=== PATIENT | male | born 1950 | race Two or more races ===

== ENCOUNTER 2017-03-09 12:24 | Emergency (ER) | payer MEDICARE, OTHER ==
[~2017-03-09] VITALS: Ht 165.1 cm; Wt 72.6 kg
[2017-03-09 13:31] LABS: Albumin 3.8 g/dL (3.4-5.0); Alkaline Phosphatase 121 U/L (45-117); Anion Gap 8 (5-15); Aspartate Aminotransferase 16 U/L (15-37); BUN/Creatinine Ratio 11.1; Bilirubin, Total 0.4 mg/dL (0.2-1.0); Blood Urea Nitrogen 10 mg/dL (7-18); Calcium 8.5 mg/dL (8.5-10.1); Carbon Dioxide 25 mmol/L (21-32); Chloride 105 mmol/L (98-107); GFR African American 109 mL/min; GFR Non-African American 90 mL/min; Glucose 112 mg/dL (74-106); Sodium 138 mmol/L (136-145); Total Protein 7.3 g/dL (6.4-8.2)
[2017-03-09 13:39] LABS: Basophils # (auto) 0 uL; Basophils % (auto) 0.6 % (0.0-2.0); Eosinophils # (auto) 0 uL; Eosinophils % (auto) 0.5 % (0.0-7.0); Hematocrit 42.2 % (41.0-53.0); Hemoglobin 14.7 g/dL (13.5-17.5); Lymphocytes # (auto) 1.5 uL; Lymphocytes % (auto) 24.4 % (10.0-50.0); Mean Corpuscular Hemoglobin 32.6 pg (28.0-32.0); Mean Corpuscular Hgb Conc. 34.9 g/dL (32.0-36.0); Mean Corpuscular Volume 93.5 fL (80.0-100.0); Monocytes # (auto) 0.4 uL; Monocytes % (auto) 6.5 % (0.0-12.0); Neutrophils # (auto) 4.2 uL; Platelet Count (auto) 304 10^3/uL (140-450); White Blood Cell 6.2 10^3/uL (4.4-10.8)
[2017-03-09] MEDS ORDERED: cloNIDine HCL 0.1 MG TAB PO ONE (15:45)
[2017-03-09 17:31] VITALS: BP 121/79
== END 2017-03-09 19:24 | disposition home or self-care (01) ==
LOC: EDBD 12:24 → ER 12:32
DX: I10 Essential (primary) hypertension (principal); R07.9 Chest pain, unspecified
CPT/HCPCS: 36415; 71010; 80053; 84484; 85025; 93005; 94761

== ENCOUNTER → 2017-10-31 | Day surgery (SDC) | payer MEDICARE, MEDICAID ==
[2017-10-27 10:21] LABS: Basophils # (auto) 0.1 uL; Basophils % (auto) 1.1 % (0.0-2.0); Eosinophils # (auto) 0.1 uL; Eosinophils % (auto) 1.8 % (0.0-7.0); Hematocrit 44.1 % (41.0-53.0); Hemoglobin 15.2 g/dL (13.5-17.5); Lymphocytes % (auto) 34.4 % (10.0-50.0); Mean Corpuscular Hemoglobin 32.5 pg (28.0-32.0); Mean Corpuscular Hgb Conc. 34.5 g/dL (32.0-36.0); Mean Corpuscular Volume 94.1 fL (80.0-100.0); Monocytes # (auto) 0.4 uL; Monocytes % (auto) 7.3 % (0.0-12.0); Neutrophils # (auto) 3.1 uL; Neutrophils % (auto) 55.4 % (37.0-80.0); Nucleated Red Blood Cells % 0.1 %; Platelet Count (auto) 277 10^3/uL (140-450); Red Blood Cells 4.68 10^6/uL (4.5-5.90); White Blood Cell 5.7 10^3/uL (4.4-10.8)
[2017-10-27 10:27] LABS: Urine Bacteria NONE SEEN /hpf (None Seen); Urine Blood Negative /uL (Negative); Urine Specific Gravity 1.008 (1.001-1.035); Urine WBC 1 /hpf (0 - 3)
[2017-10-27 10:43] LABS: Albumin 4.2 g/dL (3.4-5.0); BUN/Creatinine Ratio 13.7; Bilirubin, Total 0.5 mg/dL (0.2-1.0); Calcium 8.9 mg/dL (8.5-10.1); Potassium 4.2 mmol/L (3.5-5.1); Total Protein 7.9 g/dL (6.4-8.2)
[2017-10-27 11:03] LABS: INR 0.91 (0.9-1.15); Partial Thromboplastin Time 24.6 sec (22.64-33.71); Prothrombin Time 9.9 sec (9.37-12.3)
[~2017-10-31] VITALS: Ht 154.9 cm; Wt 68.5 kg
[~2017-10-31] MED LIST: ATOR20TA50 PO; DILT120T3 PO; ceFAZolin 1GM/50ML 50 ML IV ONE
[2017-10-31 06:30] VITALS: BP 135/82
== END | disposition home or self-care (01) ==
LOC: SUR 06:08
PROVIDERS: ATTEND Orthopaedic Surgery
DX: M24.662 Ankylosis, left knee (principal); Z53.8 Procedure and treatment not carried out for other reasons; M24.562 Contracture, left knee; E66.9 Obesity, unspecified; Z68.28 Body mass index [BMI] 28.0-28.9, adult; D69.6 Thrombocytopenia, unspecified
CPT/HCPCS: 36415; 80053; 81001; 85025; 85610; 85730; 86850; 86900; 86901; 93306; J0690

== ENCOUNTER 2020-07-15 12:17 | Emergency (ER) | payer OTHER, MEDICAID ==
[~2020-07-15] VITALS: Ht 165.1 cm; Wt 71.7 kg
[~2020-07-15 12:17] MED LIST changes: -ceFAZolin 1GM/50ML 50 ML IV ONE
[2020-07-15] MEDS ORDERED: cloNIDine HCL 0.1 MG TAB PO ONE (12:30)
[2020-07-15 12:54] LABS: Basophils # (auto) 0.1 10 ^3/uL (0-0.2); Basophils % (auto) 1.1 % (0.0-2.0); Eosinophils # (auto) 0.1 10 ^3/uL (0-0.8); Hematocrit 38.9 % (41.0-53.0); Hemoglobin 13.7 g/dL (13.5-17.5); Lymphocytes # (auto) 1.2 10 ^3/uL (0.4-5.4); Lymphocytes % (auto) 22.8 % (10.0-50.0); Mean Corpuscular Hemoglobin 33.8 pg (28.0-32.0); Mean Corpuscular Hgb Conc. 35.2 g/dL (32.0-36.0); Mean Corpuscular Volume 96.2 fL (80.0-100.0); Monocytes # (auto) 0.5 10 ^3/uL (0-1.3); Monocytes % (auto) 8.9 % (0.0-12.0); Neutrophils # (auto) 3.6 10 ^3/uL (1.6-8.6); Neutrophils % (auto) 66.2 % (37.0-80.0); Platelet Count (auto) 239 10^3/uL (140-450); Red Blood Cells 4.05 10^6/uL (4.5-5.90); White Blood Cell 5.4 10^3/uL (4.4-10.8)
[2020-07-15 12:55] VITALS: BP 248/138
[2020-07-15 13:15] LABS: Calcium 8.7 mg/dL (8.5-10.1); Potassium 3.9 mmol/L (3.5-5.1)
[2020-07-15 13:17] LABS: BUN/Creatinine Ratio 9.7; Bilirubin, Total 0.5 mg/dL (0.2-1.0); Total Protein 7.7 g/dL (6.4-8.2)
== END 2020-07-15 13:58 | disposition home or self-care (01) ==
LOC: ER 12:17
DX: I16.0 Hypertensive urgency (principal); Z79.899 Other long term (current) drug therapy
CPT/HCPCS: 36415; 80053; 85025; 93005

== ENCOUNTER 2021-12-03 11:03 | Inpatient (IN) | payer OTHER, MEDICAID ==
[~2021-12-03] VITALS: Ht 165.1 cm; Wt 66.7 kg
[2021-12-03] MEDS ORDERED: SODIUM BICARBONATE 8.4% INJ 50ML SYRINGE IV ONE (12:00)
[2021-12-03] MEDS ORDERED: CALCIUM CHL 100MG/ML 1,000 MG in D5W 5% 100 ML IV ONE (12:00)
[2021-12-03] MEDS ORDERED: DEXTROSE (50%) 50ML SYRG IV ONE (12:00)
[2021-12-03] MEDS ORDERED: InsuLIN REG 1unit/0.01ml Soln (100units/ml) IV ONE (12:00)
[2021-12-03] MEDS ORDERED: ALBUTEROL SULF 2.5 MG/0.5ML(0.5%) NEB SOLN NEB ONE (12:00)
[2021-12-03] MEDS ORDERED: SODIUM ZIRCONIUM CYCL 10 GM PAK PO ONE (12:00)
[2021-12-03 12:16] LABS: Basophils # (auto) 0 10 ^3/uL (0-0.2); Basophils % (auto) 0.7 % (0.0-2.0); Eosinophils # (auto) 0.1 10 ^3/uL (0-0.8); Eosinophils % (auto) 2.5 % (0.0-7.0); Hemoglobin 9.8 g/dL (13.5-17.5); Lymphocytes # (auto) 1.1 10 ^3/uL (0.4-5.4); Lymphocytes % (auto) 24.7 % (10.0-50.0); Mean Corpuscular Hgb Conc. 33.8 g/dL (32.0-36.0); Mean Corpuscular Volume 97.4 fL (80.0-100.0); Monocytes # (auto) 0.4 10 ^3/uL (0-1.3); Monocytes % (auto) 8.5 % (0.0-12.0); Neutrophils # (auto) 2.9 10 ^3/uL (1.6-8.6); Neutrophils % (auto) 63.6 % (37.0-80.0); Nucleated Red Blood Cells % 0.1 %; Red Blood Cells 2.97 10^6/uL (4.5-5.90); Red Cell Distribution Width 13.6 % (11.8-14.3); White Blood Cell 4.5 10^3/uL (4.4-10.8)
[2021-12-03 12:22] LABS: INR 0.99 (0.9-1.15); Partial Thromboplastin Time 24.6 sec (23.6-33.0)
[2021-12-03 12:26] LABS: Albumin 3.8 g/dL (3.4-5.0); BUN/Creatinine Ratio 14.5; Calcium 8.6 mg/dL (8.5-10.1)
[2021-12-03] MEDS ORDERED: ASPirin 81 mg TAB PO ONE (12:30)
[2021-12-03] MEDS ORDERED: ALBUTEROL SULF 2.5 MG/0.5ML(0.5%) NEB SOLN ONE (12:32)
[2021-12-03 12:38] LABS: Bilirubin, Total 0.5 mg/dL (0.2-1.0); Total Protein 7.1 g/dL (6.4-8.2)
[2021-12-03 12:52] LABS: Potassium 5.9 mmol/L (3.5-5.1)
[2021-12-03] MEDS ORDERED: SODIUM BICARBONATE 8.4 % INJ 50ML VIAL IV ONE (13:52)
[2021-12-03 15:14] LABS: Urine Bacteria NONE SEEN /hpf (None Seen); Urine Blood 1+ /uL (Negative); Urine Specific Gravity 1.005 (1.001-1.035); Urine WBC 1 /hpf (0 - 3)
[2021-12-03] MEDS ORDERED: ACETAMINOPHEN 500 MG TAB PO PRN (16:45)
[2021-12-03] MEDS ORDERED: MORPHINE SULFATE INJECTION 2 MG/ML SYRG IV PRN (16:45)
[2021-12-03] MEDS ORDERED: hydrALAZINE HCL 20 MG/ML VL IV PRN (16:45)
[2021-12-03] MEDS ORDERED: NITROGLYCERIN 0.4 MG SL TAB SL PRN (16:45)
[2021-12-03] MEDS: SODIUM CHLORIDE 0.9% 1,000 ML IV SCH (17:08)
[2021-12-03 18:39] LABS: % Iron Saturation 32.5 % (20-55)
[2021-12-03 21:20] VITALS: BP 142/73
[2021-12-03 22:00] VITALS: BP 142/73
[2021-12-03] MEDS ORDERED: SODIUM ZIRCONIUM CYCL 10 GM PAK PO SCH (22:00)
[2021-12-04] MEDS ORDERED: TAMS1CAP25 PO (00:14)
[2021-12-04] MEDS ORDERED: HYDR25TA5 PO (00:14)
[2021-12-04] MEDS ORDERED: SPIR50TA5 PO (00:14)
[2021-12-04] MEDS ORDERED: CARV12.544 PO (00:14)
[2021-12-04 05:00] VITALS: BP 109/63
[2021-12-04 06:01] LABS: Potassium 4.9 mmol/L (3.5-5.1)
[2021-12-04 06:03] LABS: BUN/Creatinine Ratio 16.2
[2021-12-04 06:13] LABS: Basophils # (auto) 0 10 ^3/uL (0-0.2); Basophils % (auto) 0.6 % (0.0-2.0); Eosinophils # (auto) 0.2 10 ^3/uL (0-0.8); Eosinophils % (auto) 2.2 % (0.0-7.0); Hematocrit 33.2 % (41.0-53.0); Hemoglobin 11.5 g/dL (13.5-17.5); Lymphocytes # (auto) 1.5 10 ^3/uL (0.4-5.4); Lymphocytes % (auto) 20.5 % (10.0-50.0); Mean Corpuscular Hgb Conc. 34.7 g/dL (32.0-36.0); Mean Corpuscular Volume 95.2 fL (80.0-100.0); Monocytes # (auto) 0.8 10 ^3/uL (0-1.3); Monocytes % (auto) 10.5 % (0.0-12.0); Neutrophils % (auto) 66.2 % (37.0-80.0); Nucleated Red Blood Cells % 0.1 %; Red Blood Cells 3.48 10^6/uL (4.5-5.90); Red Cell Distribution Width 13.4 % (11.8-14.3); White Blood Cell 7.5 10^3/uL (4.4-10.8)
[2021-12-04 08:00] VITALS: BP 125/71
[2021-12-04 08:49] VITALS: BP 125/71
[2021-12-04] MEDS: SODIUM CHLORIDE 0.9% 1,000 ML IV SCH ×2 (09:25→18:02)
[2021-12-04 12:58] VITALS: BP 153/88
[2021-12-04 17:00] VITALS: BP 146/72
[2021-12-04 22:00] VITALS: BP 131/74
[2021-12-05 05:00] VITALS: BP 123/66
[2021-12-05 06:15] LABS: Calcium 8.9 mg/dL (8.5-10.1); Potassium 4.8 mmol/L (3.5-5.1)
[2021-12-05 06:19] LABS: BUN/Creatinine Ratio 17.1
[2021-12-05 08:00] VITALS: BP 125/80
[2021-12-05 09:00] VITALS: BP 125/80
[2021-12-05 13:00] VITALS: BP 157/98
[2021-12-05 17:00] VITALS: BP 140/75
[2021-12-05] MEDS: SODIUM CHLORIDE 0.9% 1,000 ML IV SCH ×2 (17:00→17:50)
[2021-12-05 22:00] VITALS: BP 137/83
[2021-12-06 05:00] VITALS: BP 137/74
[2021-12-06 09:00] VITALS: BP 147/88
[2021-12-06 10:54] VITALS: BP 147/88
== END 2021-12-06 12:38 | disposition home or self-care (01) | DRG 641 ==
LOC: ER 11:03 → TELE 16:27 → TELE-WESTW 21:00
PROVIDERS: ADMIT Internal Medicine; ATTEND Internal Medicine
DX: E87.5 Hyperkalemia (principal); N17.9 Acute kidney failure, unspecified; I12.9 Hypertensive chronic kidney disease with stage 1 through stage 4 chronic kidney disease, or unspecified chronic kidney disease; N18.32 Chronic kidney disease, stage 3b; N40.0 Benign prostatic hyperplasia without lower urinary tract symptoms; E86.9 Volume depletion, unspecified; Z20.822 Contact with and (suspected) exposure to COVID-19
CPT/HCPCS: 36415; 71045; 76775; 80048; 80053; 81001; 83540; 83550; 84132; 84154; 85025; 85610; 85730; 87426; 93005; 94640; 96365; 96375; 99291; G0378; J1815; J7060

== ENCOUNTER 2022-04-11 16:00 | Emergency (ER) | payer OTHER, MEDICAID ==
[~2022-04-11] VITALS: Ht 165.1 cm; Wt 68.0 kg
[~2022-04-11 16:00] MED LIST changes: +CARV12.544 PO; +HYDR25TA5 PO; +TAMS1CAP25 PO
[2022-04-11 16:15] VITALS: BP 148/83
[2022-04-11 17:16] LABS: Urine Bacteria NONE SEEN /hpf (None Seen); Urine Blood 3+ /uL (Negative); Urine Specific Gravity 1.011 (1.001-1.035); Urine WBC 599 /hpf (0 - 3); Urine WBC Clumps PRESENT /hpf (None Seen)
[2022-04-13] MEDS ORDERED: NITR-87 PO (20:54)
== END 2022-04-11 17:28 | disposition home or self-care (01) ==
LOC: ER 16:00
DX: T83.028A Displacement of other urinary catheter, initial encounter (principal); I12.9 Hypertensive chronic kidney disease with stage 1 through stage 4 chronic kidney disease, or unspecified chronic kidney disease; N18.9 Chronic kidney disease, unspecified; Z79.899 Other long term (current) drug therapy
CPT/HCPCS: 81001; 87086; 87088; 87186

== ENCOUNTER 2024-05-03 08:26 | Emergency (ER) | payer MEDICAID, OTHER ==
[~2024-05-03] VITALS: Ht 165.1 cm; Wt 66.8 kg
[~2024-05-03 08:26] MED LIST changes: +NITR-87 PO
[2024-05-03 09:08] VITALS: BP 160/76; PULSE 76; RESP 18; TEMP 98; O2SAT 99
[2024-05-03] MEDS ORDERED: BACDST PO (09:44)
== END 2024-05-03 09:58 | disposition home or self-care (01) ==
LOC: ER 08:26
DX: N39.0 Urinary tract infection, site not specified (principal); I12.9 Hypertensive chronic kidney disease with stage 1 through stage 4 chronic kidney disease, or unspecified chronic kidney disease; N18.9 Chronic kidney disease, unspecified; Z46.6 Encounter for fitting and adjustment of urinary device
CPT/HCPCS: 51702; 81002

== ENCOUNTER 2025-02-10 13:49 | Inpatient (IN) | payer OTHER, MEDICAID ==
[~2025-02-10] VITALS: Ht 165.1 cm; Wt 70.3 kg
[2025-02-10] VITALS (9 sets, daily range): BP systolic 98–118; BP diastolic 55–78; PULSE 66–78; RESP 12–20; TEMP 97.4–98.6; O2SAT 94–100
[~2025-02-10 13:49] MED LIST changes: +BACDST PO
[2025-02-10 14:19] LABS: Basophils # (auto) 0 10 ^3/uL (0-0.2); Basophils % (auto) 0.2 % (0.0-2.0); Eosinophils # (auto) 0 10 ^3/uL (0-0.8); Hematocrit 41.2 % (41.0-53.0); Hemoglobin 14.8 g/dL (13.5-17.5); Lymphocytes # (auto) 1.1 10 ^3/uL (0.4-5.4); Lymphocytes % (auto) 5.1 % (10.0-50.0); Mean Corpuscular Hemoglobin 32.8 pg (28.0-32.0); Mean Corpuscular Hgb Conc. 35.9 g/dL (32.0-36.0); Mean Corpuscular Volume 91.4 fL (80.0-100.0); Monocytes # (auto) 1.6 10 ^3/uL (0-1.3); Monocytes % (auto) 7.4 % (0.0-12.0); Neutrophils # (auto) 18.6 10 ^3/uL (1.6-8.6); Neutrophils % (auto) 87.3 % (37.0-80.0); Platelet Count (auto) 228 10^3/uL (140-450); Red Blood Cells 4.51 10^6/uL (4.5-5.90); Red Cell Distribution Width 13.2 % (11.8-14.3); White Blood Cell 21.3 10^3/uL (4.4-10.8)
[2025-02-10 14:27] LABS: Potassium 4.3 mmol/L (3.5-5.1)
[2025-02-10 14:28] LABS: Anion Gap 12 (5-15); Carbon Dioxide 24 mmol/L (20-31)
[2025-02-10] MEDS: HEPARIN 1,000 UNITS/ml 1ML VIAL IV ONE (14:30)
[2025-02-10] MEDS: MORPHINE SULFATE 4 MG/ML SYR/VIAL IV ONE (14:30)
[2025-02-10] MEDS: ONDANSETRON HCL 4 MG/2 ML VIAL IV ONE (14:30)
[2025-02-10] MEDS: ASPirin 81 mg TAB PO ONE (14:30)
[2025-02-10] MEDS: ANGIOMAX 250 MG VIAL IV ONE (14:32)
[2025-02-10] MEDS: fentaNYL CITRATE 100 MCG/2 ML VL ONE (14:32)
--- NOTE | 2025-02-10 14:32 | ED.PDOC ---
HPI Comments 74y M who presents to the ED for chief complaint of chest pain. Pt states he has been having chest pain for the past 2 days. Pt states the pain is located by the L side of his chest, radiating to the L arm and shoulder, rating the pain 10/10, constant, with no noted exacerbating or relieving factors. Pt has associated dizziness, palpitations and shortness of breath but otherwise denies diaphoresis, nausea, vomiting, fever, cough, chills, or headache. Pt has history of HTN. Pt otherwise has BP of 123/95 and temp of 97.0 F but otherwise has stable vitals in the ED. Pt denies any other symptoms at this time. Chief Complaint: chest pain Time Seen by MD: 14:28 Primary Care Provider: JULIA Be Notes: Medications, Allergies Allergies: Coded Allergies: NO KNOWN ALLERGIES (Unverified , 12/03/21) Home Meds Active Scripts Sulfamethoxazole W/Trimethopri (Bactrim Ds Tablet) 1 Tab Tb, 1 TAB PO BID for 10 Days, #20 TAB Prov:COMPA BECERRA 05/03/24 Nitrofurantoin Monohydrate Mac (Macrobid) 100 Mg Cap, 100 MG PO BID for 7 Days, #14 CAP Prov:AIDA BLANKENSHIP MD 04/13/22 Reported Medications Carvedilol (Carvedilol) 12.5 Mg Tab, 12.5 MG PO Q12HR for 30 Days, MG 12/04/21 Tamsulosin HCl (Tamsulosin Hydrochloride) 0.4 Mg Cap, 0.4 MG PO, CAP 12/04/21 Hctz (Hydrochlorothiazide) 25 Mg Tab, 25 MG PO, TAB 12/04/21 Diltiazem Hcl (Diltiazem Hcl) 120 Mg Tab, 120 MG PO DAILY, TAB 10/27/17 Atorvastatin Calcium (ATORVASTATIN CALCIUM) 20 Mg Tab, 1 TAB PO DAILY, #30 TAB 5 Refills 10/27/17 Information Source: Patient Mode of Arrival: Ambulatory Brought in by: self Severity: Moderate Timing: Days Duration: Since onset Prehospital treatment: None Location: Chest (L) Radiation: Shoulder (L), Arm (L) Quality: Sharp, Pressure Onset: At Rest Cardiac Risk Factors: HTN PE Risk Factors: None History of: None Modifying Factors: Nothing Associated Signs and Symptoms: SOB, Palpitations Past Medical History PAST MEDICAL HISTORY: CKF, HTN Past Medical History (Other): BPH Surgical History: Hernia Repair Family History Family History: Reviewed,noncontributory to illness Social History Smoker: Non-Smoker Alcohol: Denies ETOH Use Drugs: Denies Drug Use Lives In: Home Constitutional: denies: chills, diaphoresis, fatigue, fever, malaise, sweats, weakness, others EENTM: denies: blurred vision, double vision, ear bleeding, ear discharge, ear drainage, ear pain, ear ringing, eye pain, eye redness, hearing loss, mouth pain, mouth swelling, nasal discharge, nose bleeding, nose congestion, nose pain, photophobia, tearing, throat pain, throat swelling, voice changes, others Respiratory: reports: shortness of breath; denies: cough, hemoptysis, orthopnea, SOB at rest, SOB with excertion, stridor, wheezing, others Cardiovascular: reports: chest pain, palpitations; denies: dizzy spells, diaphoresis, Dyspnea on exertion, edema, irregular heart beat, left arm pain, lightheadedness, PND, syncope, others Gastrointestinal: denies: abdomen distended, abdominal pain, blood streaked bowels, constipated, diarrhea, dysphagia, difficulty swallowing, hematemesis, melena, nausea, poor appetite, poor fluid intake, rectal bleeding, rectal pain, vomiting, others Genitourinary: denies: burning, dysuria, flank pain, frequency, hematuria, incontinence, penile discharge, penile sore, pain, testicle pain, testicle swelling, urgency, others Neurological: reports: dizziness; denies: fainting, headache, left sided numbne ss, left sided weakness, numbness, paresthesia, pre-existing deficit, right sided numbness, right sided weakness, seizure, speech problems, tingling, tremors, weakness, others Musculoskeletal: denies: back pain, gout, joint pain, joint swelling, muscle pain, muscle stiffness, neck pain, others Integumetry: denies: bruises, change in color, change in hair/nails, dryness, laceration, lesions, lumps, rash, wounds, others Allergic/Immunocompromised: denies: Difficulty Healing, Frequent Infections, Hives, Itching, others Hematologic/Lymphatic: denies: anemia, blood clots, easy bleeding, easy bruising, swollen glands, others Endocrine: denies: excessive hunger, excessive sweating, excessive thirst, excessive urination, flushing, intolerance to cold, intolerance to heat, unexplained weight gain, unexplained weight loss, others Psychiatric: denies: anxiety, bipolar disorder, depression, hopeless, panic disorder, schizophrenia, sleepless, suicidal, others All Other Systems: Reviewed and Negative Physical Exam General Appearance: Moderate Distress HEENT: Normal ENT Inspection, Pharynx Normal, TMs Normal Neck: Full Range of Motion, Non-Tender, Normal, Normal Inspection Respiratory: Chest Non-Tender, Lungs Clear, No Accessory Muscle Use, No Respiratory Distress, Normal Breath Sounds Cardiovascular: No Edema, No JVD, No Murmur, No Gallop, Normal Peripheral Pulses, Regular Rate/Rhythm Breast Exam: Deferred Gastrointestinal: No Organomegaly, Non Tender, No Pulsatile Mass, Normal Bowel Sounds, Soft Genitalia: Deferred Pelvic: Deferred Rectal: Deferred Extremities: No calf tenderness, Normal capillary refill, No pedal edema Musculoskeletal : Apperance: Normal Neurologic: Alert, 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 Was a procedure done?: No CP Differential Dx Differential Diagnosis: A-fib, A-Flutter, Angina, Anxiety / Panic Attack, Atrial Dysrhythmia, Heart Failure, PR, Pulmonary Embolus, PVC's, Renal Failure, Sinus Tachycardia Differential Diagnosis: HTN Essential, HTN Accelerated, Medical NonCompliance X-Ray, Labs, Meds, VS Vital Signs Date Time Temp Pulse Resp B/P (MAP) Pulse Ox O2 Delivery O2 Flow Rate FiO2 02/10/25 14:43 96 Nasal Cannula* 2 28 02/10/25 14:32 80 02/10/25 14:30 78 15 119/78 02/10/25 14:25 78 15 95 Room Air* 0 21 02/10/25 14:25 97.5 78 15 119/78 (92) 94 97.5 02/10/25 13:49 97.0 87 18 123/95 (104) 97 97.0 Lab Test 02/10/25 14:07 02/10/25 13:58 Range/Units White Blood Count 21.3 H 4.4-10.8 10^3/uL Red Blood Count 4.51 4.5-5.90 10^6/uL Hemoglobin 14.8 13.5-17.5 g/dL Hematocrit 41.2 41.0-53.0 % Mean Corpuscular Volume 91.4 80.0-100.0 fL Mean Corpuscular Hemoglobin 32.8 H 28.0-32.0 pg Mean Corpuscular Hemoglobin Concent 35.9 32.0-36.0 g/dL Red Cell Distribution Width 13.2 11.8-14.3 % Platelet Count 228 140-450 10^3/uL Mean Platelet Volume 7.9 6.9-10.8 fL Neutrophils (%) (Auto) 87.3 H 37.0-80.0 % Lymphocytes (%) (Auto) 5.1 L 10.0-50.0 % Monocytes (%) (Auto) 7.4 0.0-12.0 % Eosinophils (%) (Auto) 0.0 0.0-7.0 % Basophils (%) (Auto) 0.2 0.0-2.0 % Neutrophils # (Auto) 18.6 H 1.6-8.6 10 ^3/uL Lymphocytes # (Auto) 1.1 0.4-5.4 10 ^3/uL Monocytes # (Auto) 1.6 H 0-1.3 10 ^3/uL Eosinophils # (Auto) 0 0-0.8 10 ^3/uL Basophils # (Auto) 0 0-0.2 10 ^3/uL Nucleated Red Blood Cells 0.0 % Prothrombin Time 10.7 9.3-11.8 sec Prothrombin Time INR 1.01 0.9-1.15 Activated Partial Thromboplast Time 22.1 L 24.5-34.5 SEC Sodium Level 129 L 136-145 mmol/L Potassium Level 4.3 3.5-5.1 mmol/L Chloride Level 93 L 98-107 mmol/L Carbon Dioxide Level 24 20-31 mmol/L Anion Gap 12 5-15 Blood Urea Nitrogen 67 H 9-23 mg/dL Creatinine 3.33 H 0.700-1.30 mg/dL Glomerular Filtration Rate Calc 19 >90 mL/min BUN/Creatinine Ratio 20.1 H 10.0-20.0 Serum Glucose 373 H 74-106 mg/dL Calcium Level 13.8 *H 8.7-10.4 mg/dL Troponin I High Sensitivity > 94640 *H </=54 ng/L B-Type Natriuretic Peptide 1181.39 0-100 pg/mL POC Glucose 396 H 70-106 mg/dl Current Medications Medications (Trade) Dose Ordered Sig/Nikolai Route Start Time Stop Time Status Last Admin Aspirin 162 mg ONCE ONCE PO 02/10/25 14:15 02/10/25 14:16 DC 02/10/25 14:30 Morphine Sulfate 2 mg ONCE ONCE IV 02/10/25 14:15 02/10/25 14:16 DC 02/10/25 14:30 Heparin Sodium (Porcine) 4,000 units ONCE ONCE IV 02/10/25 14:15 02/10/25 14:16 DC 02/10/25 14:30 Ondansetron HCl (Zofran) 4 mg ONCE ONCE IV 02/10/25 14:15 02/10/25 14:16 DC 02/10/25 14:30 Dr. Nguyen did come down to bedside after the STEMI was called. We have discussed the findings with the patient and he is aware of the management. The patient was given aspirin 162 mg upon arrival. For the pain, the patient was given morphine 2 mg IV push The patient was given Zofran 4 mg IV push for the nausea The patient was bolused with heparin at 4000 units per STEMI protocol The 1st troponin [place] [address]. The patient was calcium level is 13.8 The patient was also hyperglycemic at 373 The BUN is 67 and the creatinine is 3.33 The patient was hyponatremic and hypochloremic. The patient's CBC shows an elevated white blood cell count of 21.3 At this time, the patient will be taken to the laboratory chemist by Dr. Nguyen. The patient is being admitted at this time to the laboratory chemist Images Reviewed?: Images reviewed and evaluated by me Time of 1ST Reevaluation: 15:00 Reevaluation 1ST: Unchanged Patient Education/Counseling: Diagnosis, Treatment, Prognosis Family Education/Counseling: No Family Present Additional Information -Reviewed patient's previous visit(s): - The following tests were ordered, and results were reviewed by me: tropx 3, ekg x3, cbc, chest x-ray, ptptt, bnp, bmp, - Additional information was gathered from interviewing the following independent Historian: patient - I reviewed and agreed with the following test results read by other provider: radiologist - I discussed treatments and results with medical personnel and: patient Comprehensive systems review obtained and negative except for what is stated in the HPI. Departure 1 Departure Time of Disposition: 14:55 Impression: Primary Impression: STEMI (ST elevation myocardial infarction) Qualified Codes: I21.3 - ST elevation (STEMI) myocardial infarction of unspecified site Additional Impressions: Acute hyponatremia Hypochloremia Hyperglycemia Disposition: ADMITTED INPATIENT Admit to: ICU Condition: Guarded Critical Care Note Critical Care Time?: Yes (35 min-critical care time only) Stability Stability form required: Yes Unstable for transfer: ICU, CCU, PCU, LARRY (Intensive VS monitoring), ED Physic [place] Assesment (Clinical assesment) Heart Score Heart Score: Heart Score Response (Comments) Value History Highly Suspicious [address]-Deviation 2 Age >65 2 Risk Factors 1 or 2 risk factors 1 Troponin >3 x's Normal limit 2 Total 9 I personally scribed for ALEJANDRINA ALEXANDRE MD ([email or web address]) on 02/10/25 at 14:32. Electronically submitted by Lucio Mclaughlin ([email or web address]). ALEJANDRINA ALEXANDRE MD Feb 10, 2025 14:32
[2025-02-10 14:33] LABS: BUN/Creatinine Ratio 20.1 (10.0-20.0)
[2025-02-10] MEDS: SODIUM CHL 0.9% 50 ML ONE (14:33)
[2025-02-10] MEDS: IODIXANOL 320MG/ML 100ML BTL IV ONE ×2 (14:33→15:19)
[2025-02-10] MEDS: HEPARIN IN NS 1000Units/500mL 1,500 ML ONE (14:33)
[2025-02-10] MEDS: MIDAZOLAM HCL 2MG/2ML 2ml VIAL (1mg/ml) ONE (14:33)
[2025-02-10] MEDS: LIDOCAINE 2%HCL (LOCAL ANESTH.) INJ 20ML MDV ONE (14:33)
[2025-02-10] MEDS: VERAPAMIL 2.5MG/ML INJ 2ML VIAL IV ONE (14:34)
[2025-02-10 14:35] LABS: Blood Urea Nitrogen 67 mg/dL (9-23); Chloride 93 mmol/L (98-107); Glucose 373 mg/dL (74-106); Sodium 129 mmol/L (136-145)
[2025-02-10 14:37] LABS: INR 1.01 (0.9-1.15); Partial Thromboplastin Time 22.1 SEC (24.5-34.5); Prothrombin Time 10.7 sec (9.3-11.8)
[2025-02-10 14:39] LABS: Calcium 13.8 mg/dL (8.7-10.4)
--- NOTE | 2025-02-10 15:01 | DVH ---
CHEST RADIOGRAPH Indication: cp Technique: Single frontal view of the chest was obtained COMPARISON: CHEST PORTABLE on DOS: 12/03/21 FINDINGS: Lines and Tubes: None Lungs: Clear Pleura: No effusion. No pneumothorax. Cardiomediastinal contours: Unremarkable Bones: Unremarkable IMPRESSION: No acute disease.
[2025-02-10] MEDS: TICAGRELOR 90 MG TAB ONE (15:37)
[2025-02-10] MEDS: EPTIFIBATIDE INJ (2MG/ML) 10ML VIAL IV ONE (15:38)
[2025-02-10] MEDS: EPTIFIBATIDE DRIP(0.75MG/ML) 100 ML IV ONE (15:38)
[2025-02-10] MEDS: niCARdipine 25 MG/10 ML VIAL IV ONE (15:39)
[2025-02-10] MEDS ORDERED: NITROGLYCERIN 0.4 MG SL TAB SL PRN (16:30)
[2025-02-10] MEDS: EPTIFIBATIDE DRIP(0.75MG/ML) 100 ML IV SCH (17:00)
--- NOTE | 2025-02-10 18:58 | DVHOP ---
DATE OF SURGERY: 02/10/2025 TECHNIQUE PERFORMED: * Code STEMI. * Insertion of a 6-[place]gent[place] arterial line from right femoral artery under fluoroscopy. * Left coronary angiography. * Mechanical thrombectomy of the left anterior descending artery with Penumbra catheter. * Balloon angioplasty of the proximal region of the left artery with 2.5 x 12 mm noncompliant balloon and also the semi-compliant balloon. * Stenting and angioplasty of the proximal region of the left anterior descending artery with 2.75 x 15 mm length Leonel Craighead stent by [employer], had been sized up to 3.10 mm in size gradually. * Intravascular ultrasound of the left main and also of the left anterior descending artery. * Intravenous administration of Integrilin. * Right iliofemoral artery angiography and arteriotomy, Angio-Seal of the right femoral artery. * Management of the conscious sedation. COMPLICATIONS: None. ASSISTED BY: Pau Martini and Stella. INDICATIONS: Code STEMI, acute anterior wall myocardial infarction. Procedure, risks and benefits discussed. DESCRIPTION OF PROCEDURE: Brought to cardiac catheterization technician. A 6-[place]gent[place] arterial line had been placed and subsequently we put an XB 3.5, 6-Argentine guiding catheter. Angiomax was given. A Runthrough wire was passed. It was very difficulty because the artery was clotted for over 24 hours; however, able to get a wire with the help of the balloon. The balloon angioplasty was done. Subsequently, we put a Penumbra catheter and mechanical thrombectomy was done. Subsequently, we put again a 2.5 x 12 mm length noncompliant balloon and balloon angioplasty was done. Balloon had been discontinued. Subsequently, we put a stent 2.75 x 15 [place] Craighead stent of [employer] had been inserted and gradually taken up to the 15-17 atmospheres, the size of the stent made to 3.10 mm in size. Intracoronary nicardipine was given. Intracoronary Integrilin was given. Intravascular ultrasound was done. IVUS position is perfect. Subsequently, we also did a left heart cath, left ventriculogram and right iliofemoral artery angiography and arteriotomy, Angio-Seal done. Procedure went well. CONCLUSION: * Prior to performing procedure, the left anterior descending artery 100% acutely occluded in the proximal region, BLACK grade 0 flow. It is a type C lesion. It appeared to be a bifurcating lesion because the diagonal artery coming from the same place. * Post procedure, it is BLACK grade 3 flow, residual stenosis is 0% and there is no spasm, no dissection, no thrombosis. Procedure went well. Lisha Nguyen MD MP/JOSE/MIRIAN/SUZETTE TID: [id number] RECEIPT: [id number] MTDD
--- NOTE | 2025-02-10 22:00 | DVHINCON2 ---
Date of service: Feb 10, 2025 Referring Physician Carlos Eduardo Reason for Consultation STEMI History of Present Illness This is a 74 year old male with a PMH of CKF, HTN who presented to the ED with complaint of chest pain x 2 days. Patient states the pain is located on the left side of his chest, radiating to the left arm and shoulder, rating the pain 10/10, constant, with no noted exacerbating or relieving factors. Patient has associated dizziness, palpitations and shortness of breath. WBC 21.3, NA 129, CL 93, BUN 67, HULL GRINDER 3.33. Troponin >77466. Chest x-ray shows NAD. EKG is NSR with ST elevation. Code STEMI was called. I evaluated the patient at bedside within a few minutes. The patient was bolused with heparin at 4000 units per STEMI protocol. 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 Family History: Patient reports no known family medical history. Allergies: Coded Allergies: NO KNOWN ALLERGIES (Unverified , 12/03/21) Home Meds Active Scripts Sulfamethoxazole W/Trimethopri (Bactrim Ds Tablet) 1 Tab Tb, 1 TAB PO BID for 10 Days, #20 TAB Prov:COMPA BECERRA 05/03/24 Nitrofurantoin Monohydrate Mac (Macrobid) 100 Mg Cap, 100 MG PO BID for 7 Days, #14 CAP Prov:AIDA BLANKENSHIP MD 04/13/22 Reported Medications Carvedilol (Carvedilol) 12.5 Mg Tab, 12.5 MG PO Q12HR for 30 Days, MG 12/04/21 Tamsulosin HCl (Tamsulosin Hydrochloride) 0.4 Mg Cap, 0.4 MG PO, CAP 12/04/21 Hctz (Hydrochlorothiazide) 25 Mg Tab, 25 MG PO, TAB 12/04/21 Diltiazem Hcl (Diltiazem Hcl) 120 Mg Tab, 120 MG PO DAILY, TAB 10/27/17 Atorvastatin Calcium (ATORVASTATIN CALCIUM) 20 Mg Tab, 1 TAB PO DAILY, #30 TAB 5 Refills 10/27/17 Current Medications Current Medications Medications (Trade) Dose Ordered Sig/Nikolai Route PRN Reason Start Time Stop Time Status Last Admin Nitroglycerin (Ntrostat Sublingual) 0.4 mg Q5MINP PRN SL FOR CHEST PAIN 02/10/25 16:30 Morphine Sulfate 2 mg Q30M PRN IV FOR CHEST PAIN 02/10/25 16:30 Ticagrelor (Brilinta) 90 mg BID PO 02/10/25 22:00 Eptifibatide 100 ml @ 5.56 mls/hr Q18H IV 02/10/25 17:00 02/13/25 16:00 Review of Systems Constitutional: denies: chills, diaphoresis, fatigue, fever, malaise, sweats, weakness, others EENTM: denies: blurred vision, double vision, ear bleeding, ear discharge, ear drainage, ear pain, ear ringing, eye pain, eye redness, hearing loss, mouth pain, mouth swelling, nasal discharge, nose bleeding, nose congestion, nose p ain, photophobia, tearing, throat pain, throat swelling, voice changes, others Respiratory: reports: shortness of breath; denies: cough, hemoptysis, orthopnea, SOB at rest, SOB with excertion, stridor, wheezing, others Cardiovascular: reports: chest pain, palpitations; denies: dizzy spells, diaphoresis, Dyspnea on exertion, edema, irregular heart beat, left arm pain, lightheadedness, PND, syncope, others Gastrointestinal: denies: abdomen distended, abdominal pain, blood streaked bowels, constipated, diarrhea, dysphagia, difficulty swallowing, hematemesis, melena, nausea, poor appetite, poor fluid intake, rectal bleeding, rectal pain, vomiting, others Genitourinary: denies: burning, dysuria, flank pain, frequency, hematuria, incontinence, penile discharge, penile sore, pain, testicle pain, testicle swelling, urgency, others Neurological: reports: dizziness; denies: fainting, headache, left sided numbness, left sided weakness, numbness, paresthesia, pre-existing deficit, right sided numbness, right sided weakness, seizure, speech problems, tingling, tremors, weakness, others Musculoskeletal: denies: back pain, gout, joint pain, joint swelling, muscle pain, muscle stiffness, neck pain, others Integumetry: denies: bruises, change in color, change in hair/nails, dryness, laceration, lesions, lumps, rash, wounds, others Allergic/Immunocompromised: denies: Difficulty Healing, Frequent Infections, Hives, Itching, others Hematologic/Lymphatic: denies: anemia, blood clots, easy bleeding, easy br uising, swollen glands, others Endocrine: denies: excessive hunger, excessive sweating, excessive thirst, excessive urination, flushing, intolerance to cold, intolerance to heat, unexplained weight gain, unexplained weight loss, others Psychiatric: denies: anxiety, bipolar disorder, depression, hopeless, panic disorder, schizophrenia, sleepless, suicidal, others All Other Systems: Reviewed and Negative Vital Signs Vital Signs Date Time Temp Pulse Resp B/P (MAP) Pulse Ox O2 Delivery O2 Flow Rate FiO2 02/10/25 17:15 66 16 94 Nasal Cannula* 3 32 02/10/25 17:00 97.4 113/73 (86) 97.4 Physical Exam GENERAL: Alert and oriented x 3. No acute distress. EYES: PERRL, EOMI. Anicteric. HENT: Moist mucous membranes. LUNGS: Clear to auscultation bilaterally. CARDIOVASCULAR: Regular rate and rhythm. ABDOMEN: Soft, non-tender and non-distended. EXTREMITIES: No edema. NEUROLOGIC: No focal neurological deficits. SKIN: Warm, dry. Labs/Diagnostic Data Labs Test 02/10/25 19:24 02/10/25 14:07 02/10/25 13:58 Range/Units Troponin I High Sensitivity > 77132 *H </=54 ng/L White Blood Count 21.3 H 4.4-10.8 10^3/uL Red Blood Count 4.51 4.5-5.90 10^6/uL Hemoglobin 14.8 13.5-17.5 g/dL Hematocrit 41.2 41.0-53.0 % Mean Corpuscular Volume 91.4 80.0-100.0 fL Mean Corpuscular Hemoglobin 32.8 H 28.0-32.0 pg Mean Corpuscular Hemoglobin Concent 35.9 32.0-36.0 g/dL Red Cell Distribution Width 13.2 11.8-14.3 % Platelet Count 228 140-450 10^3/uL Mean Platelet Volume 7.9 6.9-10.8 fL Neutrophils (%) (Auto) 87.3 H 37.0-80.0 % Lymphocytes (%) (Auto) 5.1 L 10.0-50.0 % Monocytes (%) (Auto) 7.4 0.0-12.0 % Eosinophils (%) (Auto) 0.0 0.0-7.0 % Basophils (%) (Auto) 0.2 0.0-2.0 % Neutrophils # (Auto) 18.6 H 1.6-8.6 10 ^3/uL Lymphocytes # (Auto) 1.1 0.4-5.4 10 ^3/uL Monocytes # (Auto) 1.6 H 0-1.3 10 ^3/uL Eosinophils # (Auto) 0 0-0.8 10 ^3/uL Basophils # (Auto) 0 0-0.2 10 ^3/uL Nucleated Red Blood Cells 0.0 % Prothrombin Time 10.7 9.3-11.8 sec Prothrombin Time INR 1.01 0.9-1.15 Activated Partial Thromboplast Time 22.1 L 24.5-34.5 SEC Sodium Level 129 L 136-145 mmol/L Potassium Level 4.3 3.5-5.1 mmol/L Chloride Level 93 L 98-107 mmol/L Carbon Dioxide Level 24 20-31 mmol/L Anion Gap 12 5-15 Blood Urea Nitrogen 67 H 9-23 mg/dL Creatinine 3.33 H 0.700-1.30 mg/dL Glomerular Filtration Rate Calc 19 >90 mL/min BUN/Creatinine Ratio 20.1 H 10.0-20.0 Serum Glucose 373 H 74-106 mg/dL Calcium Level 13.8 *H 8.7-10.4 mg/dL B-Type Natriuretic Peptide 1181.39 0-100 pg/mL POC Glucose 396 H 70-106 mg/dl Assessment STEMI. Acute anterior wall MT. Chest pain. Hyponatremia. HTN. Plan/Recommendation Admit patient to the hospital for further evaluation and treatment. Aspirin, Lipitor, Metoprolol. Nitro SL. Heparin per pharmacy. Morphine for pain management. Additional plan as per the hospital course. A total of 45 minutes was spent reviewing the patient record, examining the patient, making a diagnostic and therapeutic plan, discussing this plan with medical personnel, following up on diagnostic studies and following the patient for clinical stability excluding any and all procedures. At least 50% of this time was spent in direct, [id number] contact. Plan discussed with: Patient MUKESH BLACKWOOD MD Feb 10, 2025 21:59
[2025-02-10] MEDS: ATORVASTATIN 20 MG TAB PO ONE (22:20)
[2025-02-10] MEDS: MORPHINE SULFATE INJ 2 MG/ml SYRG IV PRN (22:20)
[2025-02-10] MEDS: TICAGRELOR 90 MG TAB PO SCH (22:20)
[2025-02-11] VITALS (8 sets, daily range): BP systolic 93–105; BP diastolic 58–66; PULSE 69–80; RESP 18; TEMP 97.3–97.9; O2SAT 91–99
--- NOTE | 2025-02-11 03:28 | DVHOP ---
DATE OF SURGERY: 02/10/2025 TECHNIQUE PERFORMED: * Code STEMI. * Left heart catheterization. * Left ventriculogram. * [place] selective left and right coronary artery angiography. * Right femoral artery insertion of a 6-[place] arterial line under fluoroscopic guidance. * Management of the conscious sedation. COMPLICATIONS: None. 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 Other assistants are Pau and Stella. INDICATIONS: The patient has an acute anterior wall myocardial infarction, code STEMI. DESCRIPTION OF PROCEDURE: Risks, benefits discussed, seen in the emergency room. Right groin was shaved and was cleaned with soap and Betadine. Under fluoroscopic guidance, 6-[place] arterial line has been placed. JL4 with the help of JR4 catheter, right coronary angiography also has been done in a standard manner. At the end of the procedure, we also did a left heart cath and left ventriculogram and procedure had been completed in a standard manner. IMPRESSION: * Normal left main. * Left ventricular artery 100% acutely occluded, and proximal one-third region, BLACK grade 0 flow. * Obtuse marginal circumflex artery are of moderate size. There is a mild stenosis noted in the obtuse marginal artery, maybe 40% right femoral artery, very large vein artery. Mid region is calcified and have underlying 75% narrowing of the left ventricle in the range of 20% to 25% apical anterior wall. There is remarkable hypokinesis noted, dilated left ventricle. PLAN OF ACTION: Advised to undergo the intervention on the left anterior descending artery. Lisha Nguyen MD MP/SEEMA/ALEKS TID: [id number] RECEIPT: [id number] [place]
[2025-02-11] MEDS: METOPROLOL TARTRATE 25 MG TAB PO ONE (09:48)
[2025-02-11] MEDS: ASPirin 81 mg TAB PO ONE (09:48)
--- NOTE | 2025-02-11 10:13 | DVHHP2 ---
Review of Systems Allergies: Coded Allergies: NO KNOWN ALLERGIES (Unverified , 12/03/21) Medications Current Medications Medications Dose Ordered Sig/Nikolai Route Start Time Stop Time Status Last Admin Dose Admin Nitroglycerin 0.4 mg Q5MINP PRN SL 02/10/25 16:30 Morphine Sulfate 2 mg Q30M PRN IV 02/10/25 16:30 02/10/25 22:20 2 MG Ticagrelor 90 mg BID PO 02/10/25 22:00 02/11/25 09:48 90 MG Eptifibatide 100 ml @ 5.56 mls/hr Q18H IV 02/10/25 17:00 02/13/25 16:00 Exam Vital Signs Vital Signs Date Time Temp Pulse Resp B/P (MAP) Pulse Ox O2 Delivery O2 Flow Rate FiO2 02/11/25 09:48 72 99/60 02/11/25 09:01 97.3 18 94 97.3 02/10/25 20:00 Nasal Cannula* 3 32 Labs/Xrays Labs Test 02/11/25 06:41 02/10/25 19:24 02/10/25 14:07 02/10/25 13:58 Range/Units Creatinine 3.39 H 0.700-1.30 mg/dL Glomerular Filtration Rate Calc 18 >90 mL/min Troponin I High Sensitivity > 57450 *H </=54 ng/L White Blood Count 21.3 H 4.4-10.8 10^3/uL Red Blood Count 4.51 4.5-5.90 10^6/uL Hemoglobin 14.8 13.5-17.5 g/dL Hematocrit 41.2 41.0-53.0 % Mean Corpuscular Volume 91.4 80.0-100.0 fL Mean Corpuscular Hemoglobin 32.8 H 28.0-32.0 pg Mean Corpuscular Hemoglobin Concent 35.9 32.0-36.0 g/dL Red Cell Distribution Width 13.2 11.8-14.3 % Platelet Count 228 140-450 10^3/uL Mean Platelet Volume 7.9 6.9-10.8 fL Neutrophils (%) (Auto) 87.3 H 37.0-80.0 % Lymphocytes (%) (Auto) 5.1 L 10.0-50.0 % Monocytes (%) (Auto) 7.4 0.0-12.0 % Eosinophils (%) (Auto) 0.0 0.0-7.0 % Basophils (%) (Auto) 0.2 0.0-2.0 % Neutrophils # (Auto) 18.6 H 1.6-8.6 10 ^3/uL Lymphocytes # (Auto) 1.1 0.4-5.4 10 ^3/uL Monocytes # (Auto) 1.6 H 0-1.3 10 ^3/uL Eosinophils # (Auto) 0 0-0.8 10 ^3/uL Basophils # (Auto) 0 0-0.2 10 ^3/uL Nucleated Red Blood Cells 0.0 % Prothrombin Time 10.7 9.3-11.8 sec Prothrombin Time INR 1.01 0.9-1.15 Activated Partial Thromboplast Time 22.1 L 24.5-34.5 SEC Sodium Level 129 L 136-145 mmol/L Potassium Level 4.3 3.5-5.1 mmol/L Chloride Level 93 L 98-107 mmol/L Carbon Dioxide Level 24 20-31 mmol/L Anion Gap 12 5-15 Blood Urea Nitrogen 67 H 9-23 mg/dL BUN/Creatinine Ratio 20.1 H 10.0-20.0 Serum Glucose 373 H 74-106 mg/dL Calcium Level 13.8 *H 8.7-10.4 mg/dL B-Type Natriuretic Peptide 1181.39 0-100 pg/mL POC Glucose 396 H 70-106 mg/dl Assessment/Plan Assessment/Plan SEE DICTATED NOTE Plan discussed with: Patient My Orders Orders - GINA HUTCHINSON MD Procedure Category Date Status Time *Dr. Merlos [facility] -Da CONS 02/11/25 Transmitted Delphine 10:08 Atorvastatin (Lipitor) PHA 02/11/25 Logged 22:00 Urinalysis LAB 02/11/25 Uncollected 10:08 Urine Bacterial LEXIS 02/11/25 Logged Culture 10:08 Echo 2d Mode Cardiac US 02/11/25 Logged DOP 10:08 Complete Blood Count LAB 02/12/25 Verified 06:00 Comprehensive LAB 02/12/25 Verified Metabolic Panel 06:00 Hemoglobin A1c LAB 02/12/25 Verified 06:00 Lipid Panel LAB 02/12/25 Verified 06:00 Date of Service: Feb 11, 2025 Billing Provider: GINA HUTCHINSON MD Common Visit Codes: 09618-[id number] CARE 30-74 MIN GINA HUTCHINSON MD Feb 11, 2025 10:13
--- NOTE | 2025-02-11 10:29 | DVHHP ---
ADMIT DATE: 02/11/2025 HISTORY OF PRESENT ILLNESS: The patient is a 74-year-old gentleman who came with complaints of severe chest pain that started for 2 days prior to admission. The patient's pain was radiating to the left shoulder as well as to the left side of the neck. The patient had dizziness and palpitations. There was also shortness of breath. No history of nausea, vomiting, fever, chills, or cough. There is no history of pedal edema. No history of syncope. REVIEW OF SYSTEMS: Otherwise currently negative. PAST MEDICAL HISTORY: Significant for hypertension, chronic kidney disease, BPH, status post suprapubic catheter, hyperlipidemia and prediabetes. MEDICATIONS: Include Flomax, diltiazem, Coreg, Lipitor. ALLERGIES: No known drug allergies. SOCIAL HISTORY: No smoking or alcohol. Lives with his sister. FAMILY HISTORY: Negative. PHYSICAL EXAMINATION: GENERAL: The patient is awake and alert. VITAL SIGNS: Temperature of 97.3, blood pressure 99/60. SHEENT: Unremarkable. NECK: There is no JVD. No pedal edema. LUNGS: Equal bilaterally. No added sounds. CARDIOVASCULAR SYSTEM: S1 and S2 is regular. No murmurs. ABDOMEN: Soft. There is no organomegaly. NEUROLOGIC: Nonfocal. MUSCULOSKELETAL: Normal. UROLOGIC: The patient has a suprapubic catheter as well as a right inguinal hernia. ASSESSMENT AND PLAN: * Acute myocardial infarction. The patient is status post code STEMI. Status post angioplasty and stenting of the LAD. He is currently on an Integrilin drip and he will also continue on Brilinta. * Acute on chronic renal failure, questionable vasomotor nephropathy. A Nephrology consult will be obtained with Dr. Merlos. * Hypertension. * Hyperlipidemia. * Questionable sepsis, questionable SIRS. UA and urine culture will be obtained. * Right inguinal hernia. * Acute respiratory failure. * Questionable acute on chronic systolic heart failure. An echocardiogram will be obtained. * Prediabetes. Hemoglobin A1c will be checked. * BPH. Critical care time spent was 39 minutes. MD ELVA Bagley/EMILY TID: [id number] RECEIPT: [id number]
--- NOTE | 2025-02-11 10:44 | ECG ---
[facility] Test Date: 2025-02-10 Test Time: 16:30:35 Pat Name: ESTEBAN CORTÉS Department: Room: 0245T A Gender: M Manager Export: : 1950 Requested By: MUKESH BLACKWOOD Order Number: [id number] Reading MD: Daren Pino Measurements Intervals [place] Rate: 66 P: 66 [place]: 206 QRS: -70 QRSD: 96 T: 85 QT: 440 QTc: 461 Interpretive Statements Normal sinus rhythm Left axis deviation Anterolateral infarct , age undetermined Electronically Signed On 02-13-2025 12:22:58 PDT by Daren Pino Please click the below link to view image of tracing.
[2025-02-11] MEDS: cefTRIAXone 1GM/50ML D5W 50 ML IV ONE (11:00)
--- NOTE | 2025-02-11 13:30 | ECG ---
[facility] Test Date: 2025-02-10 Test Time: 14:02:29 Pat Name: ESTEBAN CORTÉS Department: ER Room: 0245T A Gender: M Supply Clerk: JASMIN : 1950 Requested By: WINTER HANSON Order Number: [id number] Reading MD: Daren Pino Measurements Intervals [place] Rate: 80 P: 58 [place]: 195 QRS: 133 QRSD: 93 T: -23 QT: 345 QTc: 398 Interpretive Statements Sinus rhythm Probable right ventricular hypertrophy Lateral infarct, acute Borderline ST elevation, anterior leads Baseline wander in lead(s) II,III,aVF Electronically Signed On 02-13-2025 12:57:19 PDT by Daren Pino Please click the below link to view image of tracing.
--- NOTE | 2025-02-11 17:56 | DVHSR ---
APPROVED REPORT EXAM: Two-dimensional and M-mode echocardiogram with Doppler and color Doppler. Blood Pressure: 99/60 mmHg INDICATION CHF RISK FACTORS Height: 5'5, Weight: 148 DIMENSIONS LVDd3.4 (3.8-5.7cm)LA (2D)3.9 (1.9-4.0cm)Aortic Root3.3 (2.0-3.7cm) LVDs2.2 (2.5-4.0cm)LA (MM) (1.9-4.0cm)Aortic Cusp Exc1.6 (1.5-2.0cm) EF (%) 45.0 (55-70%)Rt. Atrium3.5 (1.9-4.0cm)Asc. Aorta3.5 cm IVSd1.3 (0.7-1.1cm)RV (D) (1.8-2.4cm) PWd1.0 (0.7-1.1cm) Mitral Valve MitralMitral Stenosis E wave0.58m/sMV Mean GR.mmHg A wave0.69m/sMV Peak GR.58mmHg E/A ratio0.82D MVAcm2 DECEL [id number] 1/2 Timems Aortic Valve Aortic ValveAortic Stenosis V10.75m/Yvonne Mean GR.3mmHg V21.04m/Yvonne Peak GR.4mmHg LVOT Diameter2.1 (1.8-2.4cm)Doppler AVA2.50cm2 Pulmonic Valve V20.74m/s Tricuspid Valve TR Velocity2.77m/s [id number] Other Information Quality : Technically LimitedRhythm : Technically limited study due to patient position.body habitus. Conclusion lvef 30% apex is akinetic low normal RV function mild tricuspid regurg
--- NOTE | 2025-02-11 21:19 | DVHPN2 ---
Progress Note - Dictate Date Seen: Feb 11, 2025 Medical Necessity Reason Pt with a Central, PICC or Fol: No Subjective Patient was seen and evaluated in follow up. Patient is s/p emergency left heart catheterization, [place] selective left and right coronary artery angiography. Left ventricular artery 100% acutely occluded, and proximal one-third region, BLACK grade 0 flow. There is a mild stenosis noted in the obtuse marginal artery, maybe 40%. Mid region is calcified and have underlying 75% narrowing of the left ventricle in the range of 20% to 25% apical anterior wall. There is remarkable hypokinesis noted, dilated left ventricle. The patient is advised to undergo the intervention on the left anterior descending artery. Telemetry reviewed. vital signs Vital Sign Date Time Temp Pulse Resp B/P (MAP) Pulse Ox O2 Delivery O2 Flow Rate FiO2 02/11/25 17:26 97.6 78 18 105/64 (78) 98 97.6 02/11/25 08:00 Nasal Cannula* 3 32 Total Intake and Output 02/10/25 02/10/25 02/11/25 15:00 23:00 07:00 Intake Total 600 ml Output Total 500 ml Balance 100 ml medications Current Medications Medications Dose Ordered Sig/Nikolai Route Start Time Stop Time Status Last Admin Dose Admin Nitroglycerin 0.4 mg Q5MINP PRN SL 02/10/25 16:30 Morphine Sulfate 2 mg Q30M PRN IV 02/10/25 16:30 02/10/25 22:20 2 MG Ticagrelor 90 mg BID PO 02/10/25 22:00 02/11/25 09:48 90 MG Atorvastatin Calcium 40 mg HS PO 02/11/25 22:00 Ceftriaxone Sodium 50 ml @ 100 mls/hr DAILY@09 IV 02/12/25 09:00 objective GENERAL: Alert and oriented x 3. No acute distress. EYES: PERRL, EOMI. Anicteric. HENT: Moist mucous membranes. LUNGS: Clear to auscultation bilaterally. CARDIOVASCULAR: Regular rate and rhythm. ABDOMEN: Soft, non-tender and non-distended. EXTREMITIES: No edema. NEUROLOGIC: No focal neurological deficits. SKIN: Warm, dry. laboratory and microbiology Laboratory Tests 02/11/25 06:41 02/10/25 14:07 Test 02/10/25 14:07 Range/Units Serum Glucose 373 H 74-106 mg/dL Problem List STEMI. Acute anterior wall NE. Chest pain. Hyponatremia. HTN. Assessment/Plan Continued all current supportive medical care. Lipitor, Brilinta IV antibiotics as ordered. Nitro SL. Morphine for pain management. Additional plan as per the hospital course. Plan discussed with: Patient MUKESH BLACKWOOD MD Feb 11, 2025 21:19
[2025-02-11] MEDS: ATORVASTATIN 20 MG TAB PO SCH (22:43)
[2025-02-11 23:08] LABS: Urine Bacteria MANY /hpf (None Seen); Urine Blood 1+ /uL (Negative); Urine Clarity Turbid (Clear); Urine Color Colorless (Yellow); Urine Mucus MODERATE (None Seen); Urine Protein, UAD TRACE (Negative); Urine Specific Gravity 1.022 (1.001-1.035); Urine Squamous Epithelial Cell FEW /hpf (<5); Urine Urobilinogen Normal (Negative); Urine WBC 55 /HPF (0-3); Urine pH 5.5 (5.0-9.0)
[2025-02-12] VITALS (8 sets, daily range): BP systolic 102–120; BP diastolic 56–74; PULSE 76–108; RESP 16–19; TEMP 97.6–98.6; O2SAT 92–97
[2025-02-12 07:22] LABS: Basophils # (auto) 0 10 ^3/uL (0-0.2); Basophils % (auto) 0.2 % (0.0-2.0); Eosinophils # (auto) 0 10 ^3/uL (0-0.8); Eosinophils % (auto) 0.3 % (0.0-7.0); Hematocrit 36.8 % (41.0-53.0); Hemoglobin 13.2 g/dL (13.5-17.5); Lymphocytes % (auto) 9.7 % (10.0-50.0); Mean Corpuscular Hemoglobin 33.3 pg (28.0-32.0); Mean Corpuscular Hgb Conc. 35.9 g/dL (32.0-36.0); Mean Corpuscular Volume 92.8 fL (80.0-100.0); Monocytes % (auto) 9.9 % (0.0-12.0); Neutrophils # (auto) 8.4 10 ^3/uL (1.6-8.6); Neutrophils % (auto) 79.9 % (37.0-80.0); Nucleated Red Blood Cells % 0.1 %; Platelet Count (auto) 168 10^3/uL (140-450); Red Blood Cells 3.97 10^6/uL (4.5-5.90); Red Cell Distribution Width 13.2 % (11.8-14.3); White Blood Cell 10.5 10^3/uL (4.4-10.8)
--- NOTE | 2025-02-12 07:22 | DVH ---
EXAM: XR Chest, 1 View CLINICAL INDICATION: CHF TECHNIQUE: Frontal view of the chest. COMPARISON: XY CHEST PORTABLE on DOS: 02/10/25, CHEST PORTABLE on DOS: 12/03/21 FINDINGS: LUNGS AND PLEURAL SPACES: Unremarkable. No consolidation. No pneumothorax. HEART: Unremarkable. No cardiomegaly. MEDIASTINUM: Unremarkable. Normal mediastinal contour. BONES/JOINTS: Unremarkable. No acute fracture. OTHER FINDINGS: . None. IMPRESSION: No acute cardiopulmonary process.
[2025-02-12 07:27] LABS: Albumin 3.8 g/dL (3.2-4.8); Alkaline Phosphatase 69 U/L (46-116); Anion Gap 9 (5-15); Carbon Dioxide 25 mmol/L (20-31); Glucose 93 mg/dL (74-106); LDL Cholesterol 35 mg/dL (< 100); Total Protein 6.4 g/dL (5.7-8.2)
[2025-02-12 07:29] LABS: Bilirubin, Total 0.8 mg/dL (0.2-1.0); Cholesterol 98 mg/dL (< 200)
[2025-02-12 07:31] LABS: Alanine Aminotransferase 53 U/L (7-40); Aspartate Aminotransferase 167 U/L (13-40); Blood Urea Nitrogen 70 mg/dL (9-23); Calcium 12.2 mg/dL (8.7-10.4); Chloride 94 mmol/L (98-107); HDL Cholesterol 32 mg/dL (40-59); Potassium 3.4 mmol/L (3.5-5.1); Sodium 128 mmol/L (136-145); Triglycerides 160 mg/dL (< 150)
[2025-02-12] MEDS: cefTRIAXone 1GM/50ML D5W 50 ML IV SCH (09:27)
--- NOTE | 2025-02-12 10:37 | DVHPN2 ---
Progress Note Date Seen: Feb 12, 2025 Medical Necessity Reason Pt with a Central, PICC or Fol: No Subjective Patient reports: No new complaints Review of Systems: HEENT:Normal, CVS:Normal, RESPIRATORY:Normal, GI:Normal, :Normal, MSK:Normal, NEURO:Normal Objective vital signs Vital Sign Date Time Temp Pulse Resp B/P (MAP) Pulse Ox O2 Delivery O2 Flow Rate FiO2 02/12/25 09:04 98.2 108 18 112/69 (83) 95 98.2 02/12/25 08:00 Nasal Cannula* 3 32 Total Intake and Output 02/11/25 02/11/25 02/12/25 15:00 23:00 07:00 Intake Total 650 ml 480 ml Output Total 360 ml Balance 650 ml 120 ml medications Current Medications Medications Dose Ordered Sig/Nikolai Route Start Time Stop Time Status Last Admin Dose Admin Nitroglycerin 0.4 mg Q5MINP PRN SL 02/10/25 16:30 Morphine Sulfate 2 mg Q30M PRN IV 02/10/25 16:30 02/10/25 22:20 2 MG Ticagrelor 90 mg BID PO 02/10/25 22:00 02/12/25 09:27 90 MG Atorvastatin Calcium 40 mg HS PO 02/11/25 22:00 02/11/25 22:43 40 MG Ceftriaxone Sodium 50 ml @ 100 mls/hr DAILY@09 IV 02/12/25 09:00 02/12/25 09:27 100 MLS/HR Examination: GENERAL:Normal, HEENT:Normal, NECK:Normal, LUNGS:Normal, CVS:Normal, ABDOMEN:Normal, MSK:Normal, SKIN:Normal, NEURO:Normal, :Normal laboratory and microbiology Laboratory Tests 02/12/25 06:18 Test 02/12/25 06:18 Range/Units Serum Glucose 93 # 74-106 mg/dL Problem List/Assessment/Plan Problem List/Assessment/Plan * Acute myocardial infarction. The patient is status post code STEMI. Status post angioplasty and stenting of the LAD. asa, brilinta * Acute on chronic renal failure, questionable vasomotor nephropathy. A Nephrology consult will be obtained with Dr. Merlos. * Hypertension. * Hyperlipidemia. * Questionable sepsis, questionable SIRS ? sepsis with uti: iv rocephin * Right inguinal hernia. * Acute respiratory failure: check pulse ox * Questionable acute on chronic systolic heart failure. An echocardiogram will be obtained. * Prediabetes. Hemoglobin A1c will be checked. * BPH. * hyponatremia advance care planning- full code- time spent 19 mins Plan discussed with: Patient My Orders My Orders Orders - GINA HUTCHINSON MD Procedure Category Date Status Time Aspirin Tablet PHA 02/13/25 Verified 10:00 Pt Request For Service PT 02/12/25 Verified 10:34 * Collections Specialist CONS 02/12/25 Verified Consult Potassium Er Tablet PHA 02/12/25 Verified (Klor-Con Tablet) 10:45 Basic Metabolic Panel LAB 02/13/25 Verified 06:00 Complete Blood Count LAB 02/13/25 Verified 06:00 Date of Service: Feb 12, 2025 Billing Provider: GINA HUTCHINSON MD Common Visit Codes: 63535-[id number] INP/OBS CARE(HIGH) Secondary Visit Codes: 05850-[id number] CARE PLAN 30 MINUTES GINA HUTCHINSON MD Feb 12, 2025 10:37
[2025-02-12] MEDS: POTASSIUM CHL 20 Meq TABLET PO ONE (11:05)
[2025-02-12] MEDS: POTASSIUM EFFERVESENT TAB 25 MEQ PO ONE (13:15)
--- NOTE | 2025-02-12 18:13 | DVHINCON2 ---
DATE OF CONSULTATION: 02/12/2025 CONSULTING PHYSICIAN: Dr. Yadav. REASON FOR CONSULTATION: Renal failure. HISTORY OF PRESENT ILLNESS: The patient is a 74-year-old gentleman who is one of my chronic kidney disease patients I see regularly at the office. He has stage IV chronic kidney disease due to longstanding hypertension and diabetes. He came to the hospital yesterday complaining of chest pain and was found to have an acute coronary syndrome. He underwent emergent cardiac catheterization and stenting of the coronary arteries. He is recovering well. He is feeling better. Chest pain has resolved. I have been consulted to handle the renal failure. His creatinine on admission was 3.3, this morning it is 3.1. He is making a good amount of urine. REVIEW OF SYSTEMS: Otherwise unremarkable. PAST MEDICAL HISTORY: As stated above, significant for longstanding hypertension. He has a history of chronic kidney disease stage IV, diabetes, anemia, and coronary artery disease. MEDICATIONS IN THE HOSPITAL: Include aspirin, ceftriaxone, atorvastatin, Brilinta, morphine, and nitroglycerin. SOCIAL HISTORY: He denies smoking cigarettes or drinking alcohol. FAMILY HISTORY: Negative for chronic conditions. PHYSICAL EXAMINATION: VITAL SIGNS: Blood pressure is 112/69, heart rate 108, respirations 18, temperature 98.2. GENERAL: The patient is an adult gentleman who appears to be chronically ill, in no acute distress, alert and oriented x3. HEENT: Unremarkable. Oral mucosa is mildly pale and dry. LUNGS: Clear to auscultation. CARDIOVASCULAR: Shows regular rate with an S4 gallop. ABDOMEN: Soft, nontender. No organomegaly. Bowel sounds are normal in density and frequency. EXTREMITIES: Show no clubbing, cyanosis, or edema. NEUROLOGIC: Nonfocal. LABORATORY FINDINGS: Sodium is 128, potassium 3.4, bicarbonate 25, BUN 70, creatinine 3.1. Hemoglobin is 13.2. Urinalysis was unremarkable. He does have trace proteinuria. ASSESSMENT AND PLAN: * Acute kidney injury related to volume depletion, cannot rule out contrast-induced nephropathy. * Underlying chronic kidney disease stage IV. * Acute coronary syndrome, status post coronary angiogram. * Hyponatremia. * Hypokalemia. * Hypertension. The patient should receive intravenous fluids with normal saline for 24 hours after the catheterization, then fluids should be discontinued. He should be put on an absolute free water restriction. We should measure strict intake and output of fluid. Check basic metabolic panel again in the morning. Avoid the use of Dyazide diuretics. We should replace potassium with 40 mEq of potassium chloride twice daily over the next 24 hours. He should continue with his home medications including Jardiance. I will follow him as an outpatient. Thank you for the consultation. MD ERWIN Carroll/PEDRO/MAYRA TID: [id number] RECEIPT: [id number]
--- NOTE | 2025-02-12 22:26 | DVHPN2 ---
Progress Note - Dictate Date Seen: Feb 12, 2025 Medical Necessity Reason Pt with a Central, PICC or Fol: No Subjective Patient was seen and evaluated in follow up. No overnight events. Patient is resting in bed. NA 128, K 3.4, BUN 70, Electrical/Instrument Technician 3.18. Trig 160, HDL 32. Electrolytes are being replaced. Telemetry reviewed. vital signs Vital Sign Date Time Temp Pulse Resp B/P (MAP) Pulse Ox O2 Delivery O2 Flow Rate FiO2 02/12/25 17:05 98.5 90 18 112/74 (87) 95 98.5 02/12/25 08:00 Nasal Cannula* 3 32 Total Intake and Output 02/11/25 02/11/25 02/12/25 15:00 23:00 07:00 Intake Total 650 ml 480 ml Output Total 360 ml Balance 650 ml 120 ml medications Current Medications Medications Dose Ordered Sig/Nikolai Route Start Time Stop Time Status Last Admin Dose Admin Nitroglycerin 0.4 mg Q5MINP PRN SL 02/10/25 16:30 Morphine Sulfate 2 mg Q30M PRN IV 02/10/25 16:30 02/10/25 22:20 2 MG Ticagrelor 90 mg BID PO 02/10/25 22:00 02/12/25 09:27 90 MG Atorvastatin Calcium 40 mg HS PO 02/11/25 22:00 02/11/25 22:43 40 MG Ceftriaxone Sodium 50 ml @ 100 mls/hr DAILY@09 IV 02/12/25 09:00 02/12/25 09:27 100 MLS/HR Aspirin 81 mg DAILY PO 02/13/25 10:00 objective GENERAL: Alert and oriented x 3. No acute distress. EYES: PERRL, EOMI. Anicteric. HENT: Moist mucous membranes. LUNGS: Clear to auscultation bilaterally. CARDIOVASCULAR: Regular rate and rhythm. ABDOMEN: Soft, non-tender and non-distended. EXTREMITIES: No edema. NEUROLOGIC: No focal neurological deficits. SKIN: Warm, dry. laboratory and microbiology Laboratory Tests 02/12/25 06:18 Test 02/12/25 06:18 Range/Units Serum Glucose 93 # 74-106 mg/dL Problem List STEMI. Acute anterior wall MD. Chest pain. Hyponatremia. HTN. Assessment/Plan Continued all current supportive medical care. Aspirin, Lipitor, Brilinta. IV antibiotics as ordered. Nitro SL. Morphine for pain management. Additional plan as per the hospital course. Plan discussed with: Patient MUKESH BLACKWOOD MD Feb 12, 2025 21:33
[2025-02-13] VITALS (7 sets, daily range): BP systolic 107–119; BP diastolic 69–81; PULSE 75–88; RESP 16–20; TEMP 97.6–99.6; O2SAT 94–96
[2025-02-13 06:34] LABS: Basophils # (auto) 0 10 ^3/uL (0-0.2); Basophils % (auto) 0.3 % (0.0-2.0); Eosinophils # (auto) 0.1 10 ^3/uL (0-0.8); Eosinophils % (auto) 0.8 % (0.0-7.0); Hematocrit 36.9 % (41.0-53.0); Lymphocytes # (auto) 1.1 10 ^3/uL (0.4-5.4); Mean Corpuscular Hemoglobin 33.1 pg (28.0-32.0); Mean Corpuscular Hgb Conc. 35.1 g/dL (32.0-36.0); Mean Corpuscular Volume 94.2 fL (80.0-100.0); Monocytes # (auto) 0.9 10 ^3/uL (0-1.3); Monocytes % (auto) 10.2 % (0.0-12.0); Neutrophils # (auto) 6.9 10 ^3/uL (1.6-8.6); Neutrophils % (auto) 76.7 % (37.0-80.0); Nucleated Red Blood Cells % 0.1 %; Platelet Count (auto) 197 10^3/uL (140-450); Red Blood Cells 3.92 10^6/uL (4.5-5.90); Red Cell Distribution Width 12.8 % (11.8-14.3)
[2025-02-13 06:38] LABS: Anion Gap 8 (5-15); Carbon Dioxide 24 mmol/L (20-31)
[2025-02-13 06:43] LABS: BUN/Creatinine Ratio 20.7 (10.0-20.0)
[2025-02-13 06:44] LABS: Blood Urea Nitrogen 62 mg/dL (9-23); Calcium 11.5 mg/dL (8.7-10.4); Chloride 97 mmol/L (98-107); Glucose 135 mg/dL (74-106); Potassium 3.5 mmol/L (3.5-5.1); Sodium 129 mmol/L (136-145)
[2025-02-13] MEDS: ASPirin 81 mg TAB PO SCH (09:59)
--- NOTE | 2025-02-13 10:20 | DVHDS2 ---
Discharge Summary Date of Admission Feb 10, 2025 at 16:16 Date of Discharge: Feb 13, 2025 Labs/Diagnostic Data: Laboratory Results Test 02/13/25 05:54 02/12/25 06:18 02/11/25 22:45 02/10/25 19:24 White Blood Count 9.0 10^3/uL (4.4-10.8) Red Blood Count 3.92 10^6/uL (4.5-5.90) Hemoglobin 13.0 g/dL (13.5-17.5) Hematocrit 36.9 % (41.0-53.0) Mean Corpuscular Volume 94.2 fL (80.0-100.0) Mean Corpuscular Hemoglobin 33.1 pg (28.0-32.0) Mean Corpuscular Hemoglobin Concent 35.1 g/dL (32.0-36.0) Red Cell Distribution Width 12.8 % (11.8-14.3) Platelet Count 197 10^3/uL (140-450) Mean Platelet Volume 8.3 fL (6.9-10.8) Neutrophils (%) (Auto) 76.7 % (37.0-80.0) Lymphocytes (%) (Auto) 12.0 % (10.0-50.0) Monocytes (%) (Auto) 10.2 % (0.0-12.0) Eosinophils (%) (Auto) 0.8 % (0.0-7.0) Basophils (%) (Auto) 0.3 % (0.0-2.0) Neutrophils # (Auto) 6.9 10 ^3/uL (1.6-8.6) Lymphocytes # (Auto) 1.1 10 ^3/uL (0.4-5.4) Monocytes # (Auto) 0.9 10 ^3/uL (0-1.3) Eosinophils # (Auto) 0.1 10 ^3/uL (0-0.8) Basophils # (Auto) 0 10 ^3/uL (0-0.2) Nucleated Red Blood Cells 0.1 % Sodium Level 129 mmol/L (136-145) Potassium Level 3.5 mmol/L (3.5-5.1) Chloride Level 97 mmol/L (98-107) Carbon Dioxide Level 24 mmol/L (20-31) Anion Gap 8 (5-15) Blood Urea Nitrogen 62 mg/dL (9-23) Creatinine 2.99 mg/dL (0.700-1.30) Glomerular Filtration Rate Calc 21 mL/min (>90) BUN/Creatinine Ratio 20.7 (10.0-20.0) Serum Glucose 135 mg/dL (74-106) Calcium Level 11.5 mg/dL (8.7-10.4) Hemoglobin A1c 7.5 % A1C (<5.7) Total Bilirubin 0.8 mg/dL (0.2-1.0) Aspartate Amino Transferase (AST) 167 U/L (13-40) Alanine Aminotransferase (ALT) 53 U/L (7-40) Alkaline Phosphatase 69 U/L (46-116) Total Protein 6.4 g/dL (5.7-8.2) Albumin 3.8 g/dL (3.2-4.8) Triglycerides Level 160 mg/dL (< 150) Cholesterol Level 98 mg/dL (< 200) LDL Cholesterol 35 mg/dL (< 100) HDL Cholesterol 32 mg/dL (40-59) Urine Color Colorless (Yellow) Urine Clarity Turbid (Clear) Urine pH 5.5 (5.0-9.0) Urine Specific [place] 1.022 (1.001-1.035) Urine Protein Trace (Negative) Urine Ketones Negative (Negative) Urine Blood 1+ /uL (Negative) Urine Nitrite Negative (Negative) Urine Bilirubin Negative (Negative) Urine Urobilinogen Normal mg/dL (Negative) Urine Leukocyte Esterase 2+ /uL (Negative) Urine RBC 2 /hpf (0 - 3) Urine Microscopic WBC 55 /HPF (0-3) Urine Squamous Epithelial Cells Few /hpf (<5) Urine Bacteria Many /hpf (None Seen) Urine Mucus Moderate (None Seen) Urine Glucose 3+ mg/dL (Normal) Troponin I High Sensitivity > 00849 ng/L (</=54) Test 02/10/25 14:07 02/10/25 13:58 Prothrombin Time 10.7 sec (9.3-11.8) Prothrombin Time INR 1.01 (0.9-1.15) Activated Partial Thromboplast Time 22.1 SEC (24.5-34.5) B-Type Natriuretic Peptide 1181.39 pg/mL (0-100) POC Glucose 396 mg/dl (70-106) Other Laboratory Tests 02/13/25 05:54 Brief Hx & Hospital Course: see dictated note Condition at Discharge: Fair Final Diagnosis/Problems List acute mi Discharge Disposition: Home Discharge Instruct/Medications Diet: Cardiac 2g Na,low cholest Activity: No Restrictions, As Tolerated Follow Up/Referral: fu with dr Chelita Syed in 1 wk Medications: stop previous home meds script to pharmacy Discharge Statement: "Patient was advised to return to the ER or call 911 if any headaches, dizziness, shortness of breath, chest pain, abdominal pain, bleeding, fevers, or worsening of medical condition. Patient was counseled about treatment plan, medications, possible side effects, patientverbalized understanding. All questions were answered to the best of my ability. This discharge took greater then 30 minutes in planning, reviewing documentation, counseling the patient, and discussing with other team members." ASSESSMENT ASSESSMENT Assessment acute mi Date of Service: Feb 13, 2025 Billing Provider: GINA HUTCHINSON MD Common Visit Codes: 88498-KQR/OBS DISCH DAY >30min GINA HUTCHINSON MD Feb 13, 2025 10:20
[2025-02-13] MEDS ORDERED: CARV6.2517 PO (10:23)
[2025-02-13] MEDS ORDERED: ATOR-507 PO (10:23)
[2025-02-13] MEDS ORDERED: ASPI81CH74 PO (10:23)
[2025-02-13] MEDS ORDERED: TAMS-35 PO (10:23)
[2025-02-13] MEDS ORDERED: TICA90TA PO (10:23)
--- NOTE | 2025-02-13 10:37 | DVHDS ---
DATE OF DISCHARGE: 02/13/2025 HISTORY OF PRESENT ILLNESS: The patient is a 74-year-old gentleman who was admitted with complaints of severe chest pain and shortness of breath and has history of hypertension, chronic kidney disease, BPH, status post suprapubic catheter, hyperlipidemia, and prediabetes. HOSPITAL COURSE: The patient was seen in Cardiology consult by Dr. Nguyen. The patient underwent coronary angiography with subsequent stenting of the LAD. The patient also had acute on chronic renal failure. He was seen in a Nephrology consult by Dr. Merlos. His white count was elevated at 21,000 that improved to 9,000 at the time of discharge. The patient was hypercalcemic and that has also improved. The patient had a chest x-ray that showed no acute abnormality. Echocardiogram done showed ejection fraction of 30%. The patient had UTI secondary to ESBL. The patient will now be discharged home to be on aspirin 81 mg daily, Brilinta 90 mg b.i.d., Lipitor 40 mg at bedtime, Coreg 6.25 mg daily, Flomax 0.4 mg at bedtime. The patient will also be arranged for home IV Invanz 1 g daily for 10 days. He will follow up with his primary digital marketing analyst and with Dr. Nguyen. FINAL DIAGNOSES: * Acute myocardial infarction status post coronary angiography and stent placement. * Acute on chronic renal failure, questionable vasomotor nephropathy. * Hypertension. * Hyperlipidemia. * Likely sepsis secondary to urinary tract infection due to ESBL E. coli. * Right inguinal hernia. * Acute respiratory failure. * Acute on chronic systolic heart failure. * BPH. * Hyponatremia. * Prediabetes. Time spent in discharge plan, review of plan with the patient, nursing, and instructional systems design consultant was 41 minutes. MD ELVA Bagley/ROSARIO TID: [id number] RECEIPT: [id number]
--- NOTE | 2025-02-13 11:22 | DVHPN2 ---
Progress Note - Dictate Date Seen: Feb 13, 2025 Medical Necessity Reason Pt with a Central, PICC or Fol: No Subjective No new complaints vital signs Vital Sign Date Time Temp Pulse Resp B/P (MAP) Pulse Ox O2 Delivery O2 Flow Rate FiO2 02/13/25 08:00 88 18 94 Nasal Cannula* 3 32 02/13/25 06:00 98.1 119/77 (91) 98.1 Total Intake and Output 02/12/25 02/12/25 02/13/25 15:00 23:00 07:00 Intake Total 50 ml 425 ml 225 ml Output Total 1650 ml Balance 50 ml 425 ml -1425 ml medications Current Medications Medications Dose Ordered Sig/Nikolai Route Start Time Stop Time Status Last Admin Dose Admin Nitroglycerin 0.4 mg Q5MINP PRN SL 02/10/25 16:30 Morphine Sulfate 2 mg Q30M PRN IV 02/10/25 16:30 02/10/25 22:20 2 MG Ticagrelor 90 mg BID PO 02/10/25 22:00 02/13/25 09:59 90 MG Atorvastatin Calcium 40 mg HS PO 02/11/25 22:00 02/12/25 21:59 40 MG Aspirin 81 mg DAILY PO 02/13/25 10:00 02/13/25 09:59 81 MG Ertapenem 0.5 gm/ Sodium Chloride 50 ml @ 100 mls/hr DAILY IV 02/14/25 10:00 objective Alert and oriented x 3 NAD Lungs CTA CV: RR, no pericardial rub Abdomen: soft,NT No leg edema neuro: WNL laboratory and microbiology Laboratory Tests 02/13/25 05:54 Test 02/13/25 05:54 Range/Units Serum Glucose 135 H 74-106 mg/dL Problem List 1. MEERA, resolving, no evidence opf contrast-induced nephropathy 2. Underlying CKD4 3. Hypertensive nephrosclerosis 4. Hyponatremia, chronic 5. CAD s/p angiogram and stenting Restrict free water intake Avoid nephrotoxic medications Follow up as outpatient in nephrology clinic in 2-4 weeks. Dietary Evaluation Review Comments: 1. Disagree with renal diet for MEERA, liberalize to Cardiac diet and resume CKD diet upon D/C when not acutely ill 2. Given variable PO, will add Glucerna 1x/day (220 kcal, 10 gm pro per carton) in compliance with current diet *ordered per protocol 3. Monitor BMP/lytes, continue to replete to WNL - hyponatremia, hypokalemia noted Expected Outcomes/Goals: Improved nutritional status, less-restrictive diet order, improved lab values. Plan discussed with: Patient TERRY NASSAR MD Feb 13, 2025 11:22
[2025-02-13] MEDS: ERTAPENEM SOD INJ 0.5 GM in SODIUM CHL 0.9% 50 ML IV ONE (11:30)
[2025-02-13] MEDS: ERTAPENEM SOD INJ 1 GM in SODIUM CHL 0.9% 50 ML IV ONE (14:59)
--- NOTE | 2025-02-13 22:45 | DVHPN2 ---
Progress Note - Dictate Date Seen: Feb 13, 2025 Medical Necessity Reason Pt with a Central, PICC or Fol: No Subjective Patient was seen and evaluated in follow up. Patient is without any complaints. NA 129, CL 97, BUN 62, [facility] 2.99. HH and home IV antibiotics with Invanz is being arranged for the patient. I advised the patient to follow up with me in my office in 1 week. Telemetry reviewed. vital signs Vital Sign Date Time Temp Pulse Resp B/P (MAP) Pulse Ox O2 Delivery O2 Flow Rate FiO2 02/13/25 08:00 88 18 94 Nasal Cannula* 3 32 02/13/25 06:00 98.1 119/77 (91) 98.1 Total Intake and Output 02/12/25 02/12/25 02/13/25 15:00 23:00 07:00 Intake Total 50 ml 425 ml 225 ml Output Total 1650 ml Balance 50 ml 425 ml -1425 ml medications Current Medications Medications Dose Ordered Sig/Nikolai Route Start Time Stop Time Status Last Admin Dose Admin Nitroglycerin 0.4 mg Q5MINP PRN SL 02/10/25 16:30 Morphine Sulfate 2 mg Q30M PRN IV 02/10/25 16:30 02/10/25 22:20 2 MG Ticagrelor 90 mg BID PO 02/10/25 22:00 02/13/25 09:59 90 MG Atorvastatin Calcium 40 mg HS PO 02/11/25 22:00 02/12/25 21:59 40 MG Aspirin 81 mg DAILY PO 02/13/25 10:00 02/13/25 09:59 81 MG Ertapenem 0.5 gm/ Sodium Chloride 50 ml @ 100 mls/hr DAILY IV 02/14/25 10:00 objective GENERAL: Alert and oriented x 3. No acute distress. EYES: PERRL, EOMI. Anicteric. HENT: Moist mucous membranes. LUNGS: Clear to auscultation bilaterally. CARDIOVASCULAR: Regular rate and rhythm. ABDOMEN: Soft, non-tender and non-distended. EXTREMITIES: No edema. NEUROLOGIC: No focal neurological deficits. SKIN: Warm, dry. laboratory and microbiology Laboratory Tests 02/13/25 05:54 Test 02/13/25 05:54 Range/Units Serum Glucose 135 H 74-106 mg/dL Problem List STEMI. Acute anterior wall MS. Chest pain. Hyponatremia. HTN. Assessment/Plan Continued all current supportive medical care. Aspirin, Lipitor, Brilinta. IV antibiotics as ordered. Nitro SL. Morphine for pain management. Additional plan as per the hospital course. Dietary Evaluation Review Comments: 1. Disagree with renal diet for MEERA, liberalize to Cardiac diet and resume CKD diet upon D/C when not acutely ill 2. Given variable PO, will add Glucerna 1x/day (220 kcal, 10 gm pro per carton) in compliance with current diet *ordered per protocol 3. Monitor BMP/lytes, continue to replete to WNL - hyponatremia, hypokalemia noted Expected Outcomes/Goals: Improved nutritional status, less-restrictive diet order, improved lab values. Plan discussed with: Patient MUKESH BLACKWOOD MD Feb 13, 2025 14:06
[2025-02-14 05:00] VITALS: BP 111/69; PULSE 83; RESP 18; TEMP 98; O2SAT 95
[2025-02-14 08:00] VITALS: PULSE 84; RESP 18; O2SAT 96
[2025-02-14 09:00] VITALS: BP 106/74; PULSE 80; RESP 18; TEMP 97.5; O2SAT 96
--- NOTE | 2025-02-14 09:43 | DVHPN2 ---
Progress Note - Dictate Date Seen: Feb 14, 2025 Medical Necessity Reason Pt with a Central, PICC or Fol: No Subjective No new complaints vital signs Vital Sign Date Time Temp Pulse Resp B/P (MAP) Pulse Ox O2 Delivery O2 Flow Rate FiO2 02/14/25 09:00 97.5 80 18 106/74 (85) 96 97.5 02/13/25 20:00 Room Air* 0 21 Total Intake and Output 02/13/25 02/13/25 02/14/25 15:00 23:00 07:00 Intake Total 358 ml 956 ml 750 ml Output Total 1050 ml Balance 358 ml -94 ml 750 ml medications Current Medications Medications Dose Ordered Sig/Nikolai Route Start Time Stop Time Status Last Admin Dose Admin Nitroglycerin 0.4 mg Q5MINP PRN SL 02/10/25 16:30 Morphine Sulfate 2 mg Q30M PRN IV 02/10/25 16:30 02/10/25 22:20 2 MG Ticagrelor 90 mg BID PO 02/10/25 22:00 02/13/25 21:14 90 MG Atorvastatin Calcium 40 mg HS PO 02/11/25 22:00 02/13/25 21:14 40 MG Aspirin 81 mg DAILY PO 02/13/25 10:00 02/13/25 09:59 81 MG Ertapenem 0.5 gm/ Sodium Chloride 50 ml @ 100 mls/hr DAILY IV 02/14/25 10:00 objective Alert and oriented x 3 NAD Lungs CTA CV: RR, no pericardial rub Abdomen: soft,NT No leg edema neuro: WNL laboratory and microbiology Laboratory Tests 02/13/25 05:54 Test 02/13/25 05:54 Range/Units Serum Glucose 135 H 74-106 mg/dL Problem List 1. MEERA, resolving, no evidence opf contrast-induced nephropathy 2. Underlying CKD4 3. Hypertensive nephrosclerosis 4. Hyponatremia, chronic 5. CAD s/p angiogram and stenting Restrict free water intake Avoid nephrotoxic medications Follow up as outpatient in nephrology clinic in 2-4 weeks. Dietary Evaluation Review Comments: 1. Disagree with renal diet for MEERA, liberalize to Cardiac diet and resume CKD diet upon D/C when not acutely ill 2. Given variable PO, will add Glucerna 1x/day (220 kcal, 10 gm pro per carton) in compliance with current diet *ordered per protocol 3. Monitor BMP/lytes, continue to replete to WNL - hyponatremia, hypokalemia noted Expected Outcomes/Goals: Improved nutritional status, less-restrictive diet order, improved lab values. Plan discussed with: Patient TERRY NASSAR MD Feb 14, 2025 09:43
[2025-02-14] MEDS ORDERED: ERTAPENEM SOD INJ 1 GM in SODIUM CHL 0.9% 50 ML IV SCH (10:00)
[2025-02-14] MEDS: ERTAPENEM SOD INJ 0.5 GM in SODIUM CHL 0.9% 50 ML IV SCH (10:40)
--- NOTE | 2025-02-14 10:53 | DVHPN2 ---
Progress Note Date Seen: Feb 14, 2025 Medical Necessity Reason Pt with a Central, PICC or Fol: No Subjective Patient reports: No new complaints Review of Systems: HEENT:Normal, CVS:Normal, RESPIRATORY:Normal, GI:Normal, :Normal, MSK:Normal, NEURO:Normal Objective vital signs Vital Sign Date Time Temp Pulse Resp B/P (MAP) Pulse Ox O2 Delivery O2 Flow Rate FiO2 02/14/25 09:00 97.5 80 18 106/74 (85) 96 97.5 02/13/25 20:00 Room Air* 0 21 Total Intake and Output 02/13/25 02/13/25 02/14/25 15:00 23:00 07:00 Intake Total 358 ml 956 ml 750 ml Output Total 1050 ml Balance 358 ml -94 ml 750 ml medications Current Medications Medications Dose Ordered Sig/Nikolai Route Start Time Stop Time Status Last Admin Dose Admin Nitroglycerin 0.4 mg Q5MINP PRN SL 02/10/25 16:30 Morphine Sulfate 2 mg Q30M PRN IV 02/10/25 16:30 02/10/25 22:20 2 MG Ticagrelor 90 mg BID PO 02/10/25 22:00 02/14/25 10:34 90 MG Atorvastatin Calcium 40 mg HS PO 02/11/25 22:00 02/13/25 21:14 40 MG Aspirin 81 mg DAILY PO 02/13/25 10:00 02/14/25 10:34 81 MG Ertapenem 0.5 gm/ Sodium Chloride 50 ml @ 100 mls/hr DAILY IV 02/14/25 10:00 02/14/25 10:40 100 MLS/HR Examination: GENERAL:Normal, HEENT:Normal, NECK:Normal, LUNGS:Normal, CVS:Normal, ABDOMEN:Normal, MSK:Normal, SKIN:Normal, NEURO:Normal, :Normal laboratory and microbiology Laboratory Tests 02/13/25 05:54 Test 02/13/25 05:54 Range/Units Serum Glucose 135 H 74-106 mg/dL Microbiology Date/Time Source Procedure Growth Status 02/11/25 14:10 Urine - Suprapubic Aspirate Urine Culture - Final Escherichia coli - ESBL Complete Problem List/Assessment/Plan Problem List/Assessment/Plan * Acute myocardial infarction. The patient is status post code STEMI. Status post angioplasty and stenting of the LAD. asa, brilinta * Acute on chronic renal failure, questionable vasomotor nephropathy. A Nephrology consult will be obtained with Dr. Merlos. * Hypertension. * Hyperlipidemia. * Questionable sepsis, questionable SIRS ? sepsis with uti: iv rocephin * Right inguinal hernia. * Acute respiratory failure: check pulse ox * Questionable acute on chronic systolic heart failure. An echocardiogram will be obtained. * Prediabetes. Hemoglobin A1c will be checked. * BPH. * hyponatremia * uti: esbl ecoli: iv invanz dc home once iv antibiotics arranged for home advance care planning- full code- time spent 19 mins Plan discussed with: Patient My Orders My Orders Orders - GINA HUTCHINSON MD Procedure Category Date Status Time Ertapenem Sod Inj PHA 02/14/25 In Process (Invanz) 10:00 Dietary Evaluation Review Comments: 1. Disagree with renal diet for MEERA, liberalize to Cardiac diet and resume CKD diet upon D/C when not acutely ill 2. Given variable PO, will add Glucerna 1x/day (220 kcal, 10 gm pro per carton) in compliance with current diet *ordered per protocol 3. Monitor BMP/lytes, continue to replete to WNL - hyponatremia, hypokalemia noted Expected Outcomes/Goals: Improved nutritional status, less-restrictive diet order, improved lab values. Date of Service: Feb 14, 2025 Billing Provider: GINA HUTCHINSON MD Common Visit Codes: [id number] INP/OBS CARE(HIGH) GINA HUTCHINSON MD Feb 14, 2025 10:53
[2025-02-14 13:00] VITALS: BP 131/89; PULSE 87; RESP 20; TEMP 97.7; O2SAT 96
[2025-02-14 16:50] VITALS: BP 99/60; PULSE 72
[2025-02-14 17:00] VITALS: BP 121/78; PULSE 82; RESP 20; TEMP 98; O2SAT 95
--- NOTE | 2025-02-14 23:05 | DVHPN2 ---
Progress Note - Dictate Date Seen: Feb 14, 2025 Medical Necessity Reason Pt with a Central, PICC or Fol: No Subjective Patient was seen and evaluated in follow up. Patient has no new complaints at this time. Patient denies any cardiac symptoms. Patient is cardiac stable for discharge Telemetry reviewed. vital signs Vital Sign Date Time Temp Pulse Resp B/P (MAP) Pulse Ox O2 Delivery O2 Flow Rate FiO2 02/14/25 09:00 97.5 80 18 106/74 (85) 96 97.5 02/13/25 20:00 Room Air* 0 21 Total Intake and Output 02/13/25 02/13/25 02/14/25 15:00 23:00 07:00 Intake Total 358 ml 956 ml 750 ml Output Total 1050 ml Balance 358 ml -94 ml 750 ml medications Current Medications Medications Dose Ordered Sig/Nikolai Route Start Time Stop Time Status Last Admin Dose Admin Nitroglycerin 0.4 mg Q5MINP PRN SL 02/10/25 16:30 Morphine Sulfate 2 mg Q30M PRN IV 02/10/25 16:30 02/10/25 22:20 2 MG Ticagrelor 90 mg BID PO 02/10/25 22:00 02/14/25 10:34 90 MG Atorvastatin Calcium 40 mg HS PO 02/11/25 22:00 02/13/25 21:14 40 MG Aspirin 81 mg DAILY PO 02/13/25 10:00 02/14/25 10:34 81 MG Ertapenem 0.5 gm/ Sodium Chloride 50 ml @ 100 mls/hr DAILY IV 02/14/25 10:00 02/14/25 10:40 100 MLS/HR objective GENERAL: Alert and oriented x 3. No acute distress. EYES: PERRL, EOMI. Anicteric. HENT: Moist mucous membranes. LUNGS: Clear to auscultation bilaterally. CARDIOVASCULAR: Regular rate and rhythm. ABDOMEN: Soft, non-tender and non-distended. EXTREMITIES: No edema. NEUROLOGIC: No focal neurological deficits. SKIN: Warm, dry. laboratory and microbiology Laboratory Tests 02/13/25 05:54 Test 02/13/25 05:54 Range/Units Serum Glucose 135 H 74-106 mg/dL Problem List STEMI. Acute anterior wall VA. Chest pain. Hyponatremia. HTN. Assessment/Plan Continued all current supportive medical care. Aspirin, Lipitor, Brilinta. IV antibiotics as ordered. Nitro SL. Morphine for pain management. Additional plan as per the hospital course. Dietary Evaluation Review Comments: 1. Disagree with renal diet for MEERA, liberalize to Cardiac diet and resume CKD diet upon D/C when not acutely ill 2. Given variable PO, will add Glucerna 1x/day (220 kcal, 10 gm pro per carton) in compliance with current diet *ordered per protocol 3. Monitor BMP/lytes, continue to replete to WNL - hyponatremia, hypokalemia noted Expected Outcomes/Goals: Improved nutritional status, less-restrictive diet order, improved lab values. Plan discussed with: Patient MUKESH BLACKWOOD MD Feb 14, 2025 12:23
== END 2025-02-14 18:25 | disposition home health service (06) | DRG 321 ==
LOC: ER 13:49 → OVERFLOW 16:16 → TELE-EAST 18:25
PROVIDERS: ADMIT Internal Medicine; ATTEND Internal Medicine
PROC: 027034Z Dilation of Coronary Artery, One Artery with Drug-eluting Intraluminal Device, Percutaneous Approach (ICD-10-PCS; principal; 2025-02-10)
PROC: 02C03ZZ Extirpation of Matter from Coronary Artery, One Artery, Percutaneous Approach (ICD-10-PCS; 2025-02-10)
PROC: 4A023N7 Measurement of Cardiac Sampling and Pressure, Left Heart, Percutaneous Approach (ICD-10-PCS; 2025-02-10)
PROC: B211YZZ Fluoroscopy of Multiple Coronary Arteries using Other Contrast (ICD-10-PCS; 2025-02-10)
PROC: B215YZZ Fluoroscopy of Left Heart using Other Contrast (ICD-10-PCS; 2025-02-10)
PROC: B240ZZ3 Ultrasonography of Single Coronary Artery, Intravascular (ICD-10-PCS; 2025-02-10)
PROC: 3E063PZ Introduction of Platelet Inhibitor into Central Artery, Percutaneous Approach (ICD-10-PCS; 2025-02-10)
PROC: 04HY32Z Insertion of Monitoring Device into Lower Artery, Percutaneous Approach (ICD-10-PCS; 2025-02-10)
PROC: B41FYZZ Fluoroscopy of Right Lower Extremity Arteries using Other Contrast (ICD-10-PCS; 2025-02-10)
PROC: 05HF33Z Insertion of Infusion Device into Left Cephalic Vein, Percutaneous Approach (ICD-10-PCS; 2025-02-13)
PROC: B54NZZA Ultrasonography of Left Upper Extremity Veins, Guidance (ICD-10-PCS; 2025-02-13)
DX: I21.09 ST elevation (STEMI) myocardial infarction involving other coronary artery of anterior wall (principal); A41.51 Sepsis due to Escherichia coli [E. coli]; N17.0 Acute kidney failure with tubular necrosis; J96.00 Acute respiratory failure, unspecified whether with hypoxia or hypercapnia; I50.23 Acute on chronic systolic (congestive) heart failure; E87.1 Hypo-osmolality and hyponatremia; N18.4 Chronic kidney disease, stage 4 (severe); N39.0 Urinary tract infection, site not specified; I13.0 Hypertensive heart and chronic kidney disease with heart failure and stage 1 through stage 4 chronic kidney disease, or unspecified chronic kidney disease; Z16.12 Extended spectrum beta lactamase (ESBL) resistance; R73.03 Prediabetes; K40.90 Unilateral inguinal hernia, without obstruction or gangrene, not specified as recurrent; E86.9 Volume depletion, unspecified; N40.0 Benign prostatic hyperplasia without lower urinary tract symptoms; E83.52 Hypercalcemia; E87.8 Other disorders of electrolyte and fluid balance, not elsewhere classified; E78.5 Hyperlipidemia, unspecified; I25.10 Atherosclerotic heart disease of native coronary artery without angina pectoris; E87.6 Hypokalemia; Z79.2 Long term (current) use of antibiotics; Z79.899 Other long term (current) drug therapy
CPT/HCPCS: 36415; 71045; 80048; 80053; 80061; 81001; 82565; 82962; 83036; 83880; 84484; 85025; 85610; 85730; 87086; 87088; 87186; 93005; 93306; 96374; 96375; 97110; 97116; 97163; 99152; 99291; G0378; J1335; J2250; J2405; Q9967

== ENCOUNTER 2025-02-18 18:23 | Emergency (ER) | payer OTHER, MEDICAID ==
[~2025-02-18 18:23] MED LIST changes: +ASPI81CH74 PO; +ATOR-507 PO; +CARV6.2517 PO; +TAMS-35 PO; +TICA90TA PO
== END 2025-02-18 18:59 | disposition left against medical advice (07) ==
LOC: ER 18:23
DX: Z00.00 Encounter for general adult medical examination without abnormal findings (principal); Z53.21 Procedure and treatment not carried out due to patient leaving prior to being seen by health care provider

== ENCOUNTER 2025-02-18 19:13 | Emergency (ER) | payer OTHER, MEDICAID | END 2025-02-18 20:14 | disposition left against medical advice (07) | LOC: ER 19:13 | DX: Z44.9 Encounter for fitting and adjustment of unspecified external prosthetic device (principal); Z53.21 Procedure and treatment not carried out due to patient leaving prior to being seen by health care provider ==